=== PATIENT | male | born 1940 | race Caucasian/White ===

== ENCOUNTER 2022-06-07 12:30 | Outpatient (RCR) | payer MEDICARE, SELFPAY ==
--- NOTE | 2022-05-11 10:06 | PTOPEVAL1 ---
Assessment and note entered by Brianna Parker, PT Evaluation Information Assessment Status Evaluation Diagnosis Parkinson Disease Onset October 2021 Subjective Information gradually harder to walk and move around, taking smaller steps at times; have not had any falls; tries to walk 2-3 x/wk, 30-60 minutes; assist a few times a week with caring for 3 yr old grand daughter; want to get stronger and talk louder; reports sometimes at home, walking is more shuffled than what he did here today; Reported Pain Level Pain Score 0: Self Report Pain Score 0: Self Report Additional Pain Score Comments have muscle cramps at night, use heated mattress pad cover; has some R shoulder pain with trying to lift; Assessment PT Clinical Summary Murali has the diagnosis of Parkinson's Disease. His was present during the eval and very supportive to pt. He tries to stay active at home walks outside 2-3 x/wk, but does not do any fitness exercises. He has not had any falls. Also have Speech Therapy. With the evaluation, he has good/normal scores for TUG, 5 reps sit/stand test and 2 minute walking test. Youngblood balance score is 51/56. Skilled PT services are indicated for the [facility], to increase mobility and education to pt and his for home exercise program and management of his chronic disease. Plan of Care Interventions Neuro Re-education,Therapeutic Activities, Therapeutic Exercise, pt education PT Services Indicated Yes Treatment Frequency and 2x/wk for 3 weeks Duration These treatments will address the objective and functional deficits as defined above. The patient will be advanced safely and appropriately in order for the patient to progress towards his/her prior level of function. Additional exercises will be introduced and as well as a comprehensive home exercise program upon discharge, if needed, ?to ensure carryover of functional gains achieved in the clinic. This treatment plan has been reviewed and agreement upon by the patient.
--- NOTE | 2022-05-11 11:11 | STOPEVAL1 ---
Assessment and note entered by Scarlett Rojas BANANA HANDLER Evaluation Information Assessment Status Evaluation Assessment Status Evaluation Subjective Information The patient reports that his physician wanted patient to come for therapy; I don't have any trouble with speaking or talking but I do with memory. Stated he just obtained hearing aids and did not know if his speech had improved. He does admit tospeaking softly, that sometimes he is speaking and people don't know it. Reported Pain Level Pain Score 0: Self Report Pain Score 0: Self Report Additional Pain Score Comments have muscle cramps at night, use heated mattress pad cover; has some R shoulder pain with trying to lift; Assessment ST Clinical Summary VOICE EVALUATION Patient was seen for a Voice Evaluation to assess for use of LSVT-LOUD program for vocal loudness in patients with Parkinson's disease. See above notes for patient's and 's concerns with vocal loudness. Additionally, patient admits to forgetting to speak more loudly until his lets him know she cannot hear and understand him. 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 Results today indicate that patient's vocal loudness is adequate for speech in a quiet, enclosed room when face to face with therapist however due to 's report of examples where patient is not able to or does not speak loudly at home when they are communicating, he will be seen for direct Speech Therapy twice weekly for three weeks for instruction of exercises to improve vocal loudness along with verbal, visual and environmental cues that can be used to remind patient to speak more loudly. Additionally, and patient will be presented with examples of common memory failures and strategies that can be used to facilitate recall. Patient and were in agreement with plan to address both vocal loudness and memory strategies. Thank you for this
--- NOTE | 2022-05-29 15:17 | PCSTNOTE ---
Cancelled Thursday 05/25 due to physician appointment.
--- NOTE | 2022-06-01 12:57 | PCPTNOTE ---
Patient called & cancelled scheduled appointment this date due to not feeling well.
--- NOTE | 2022-06-04 14:09 | PCSTNOTE ---
Therapy 06/01 cancelled due to patient/therapist illness.
--- NOTE | 2022-06-04 14:39 | PTOPDC ---
Assessment and note entered by Brianna Parker, PT Evaluation Information Assessment Status Evaluation Diagnosis Parkinson Disease Onset October 2021 Subjective Information Murali reports: has been walking about 1 mile for fitness, has not had any falls; doing the exercises at home without any problems; sometimes has some dizziness, stands there a minute and it is gone; agree to discharge from PT; is to keep up with his walking and exercises at home; was present and agreed to d/c PT; Reported Pain Level Pain Score 5: Self Report back pain Pain Score Self Report Assessment PT Clinical Summary Murali has received 4 PT sessions. He has improved with his balance to Youngblood balance score of 56/56; increase strength and mobility skills; education completed for HEP. The goals were achieved. Discharge PT services, and is to continue with the balance and leg strengthening exercises. Plan of Care PT Services Indicated No
--- NOTE | 2022-06-07 13:30 | STOPDC ---
Assessment and note entered by SERVANDO Nguyen Evaluation Information Assessment Status Progress Reported Pain Level Pain Score 0: Self Report Assessment ST Clinical Summary TREATMENT NOTE AND PROGRESS SUMMARY The patient has been seen for an initial evaluation for Voice Evaluation and 7 direct sesssions to address vocal loudness. Patient reports that his biggest problem is I need to remember to talk louder. Patient reports that he feels that Speech Therapy has been helpful. He stated, It kind of gets you used to what you have to do. As a result patient feels he is better able to initially be louder when speaking with other people but eventually allows himself to drop his loudness into a mumble kind of speech. Patient reports less occasions when his has had to ask him to speak more loudly. When asked if he thought his would also report he has improved in his vocal loudness, he stated that he feels she would also report improvement although he states, she still has to remind him from time to time. Patient achieved both goals for increased loudness and increased awareness of how it feels to be loud and to project the voice so that others can hear and understand him adequately. He increased the average decibel level for sustaining the ah sound by 14.5 decibels, and averaged 77 decibels during task to imitate words and phrases with the expectation ranging from 68-74 decibels. Conversationally, he averaged 77 decibels today when average decibel level range for this speech therapy environment is 68-74 decibels. Patient is discharged with goals acheived. Plan of Care ST Services Indicated No
== END 2022-06-08 15:51 | disposition home or self-care (01) ==
LOC: ANHST 12:30
PROVIDERS: PCP Family Medicine
DX: G20 Parkinson's disease (principal); G31.83 Neurocognitive disorder with Lewy bodies; R47.89 Other speech disturbances
CPT/HCPCS: 92507; 92524; 97110; 97112; 97116; 97161; 97530

== ENCOUNTER 2022-08-28 09:50 | Outpatient (CLI) | payer MEDICARE, SELFPAY ==
--- NOTE | ~2022-08-28 | XR_ITS ---
Clinical Indication: Abnormal EKG PA and lateral views of the chest: Comparison: None Findings: The lungs are clear, without evidence of focal consolidation or pleural effusion. Cardiome diastinal silhouette is within normal limits. Bones and soft tissues are unremarkable. Impression: Normal chest. Reviewed, dictated and finalized at location . Impression: Normal chest.
[2022-08-28 10:16] LABS: Basophils Absolute Auto 0.1 K/mm3 (0.0-0.1); Basophils Percent Auto 0.9 % (0.2-1.2); Eosinophils Percent Auto 0.6 % (0-4.4); Hematocrit 41.2 % (42.0-52.0); Hemoglobin 13.9 g/dL (14.0-18.0); Immature Granulocyte Absolute 0.04 K/mm3 (0.00-0.031); Immature Granulocyte Percent A 0.6 % (0-0.5); Lymphocytes Absolute Auto 1.35 K/mm3 (0.9-3.2); Lymphocytes Percent Auto 21.3 % (18.3-44.2); Mean Corpuscular HGB Conc 33.7 g/dl (32-36); Mean Corpuscular Hemoglobin 31.1 pg (26-34); Mean Corpuscular Volume 92.2 fl (80-100); Mean Platelet Volume 9.7 fl (7.4-10.4); Monocytes Absolute Auto 0.8 K/mm3 (0.1-0.6); Monocytes Percent Auto 12.5 % (2.6-8.5); Neutrophils Absolute Auto 4.1 K/mm3 (1.3-6.7); Neutrophils Percent Auto 64.1 % (45.5-73.1); Platelet Count Result 281 k/mm3 (150-375); Red Blood Count 4.47 M/mm3 (4.6-6.20); Red Cell Distribution Width 12.8 % (11.5-14.5); White Blood Count 6.3 K/mm3 (4.5-10.0)
[2022-08-28 10:26] LABS: Alanine Aminotransferase 20 U/L (6-50); Albumin Level 4.5 g/dL (3.5-5.1); Alkaline Phosphatase 69 U/L (38-126); Anion Gap 9 mmol/L (8-16); Aspartate Amino Transferase 23 U/L (17-59); Bilirubin,Total 0.6 mg/dL (0.2-1.3); Blood Urea Nitrogen 27 mg/dL (9-20); Calcium 8.7 mg/dL (8.4-10.2); Carbon Dioxide 30 mmol/L (22-30); Chloride 93 mmol/L (98-107); Cholesterol 174 mg/dL (0-200); Estimated Glomerular Filt Rate > 60; Glucose 88 mg/dL (65-110); HDL Direct 59 mg/dL; Potassium 4.1 mmol/L (3.4-5.0); Sodium 132 mmol/L (137-145); Triglycerides 87 mg/dL (<150)
[2022-08-28 10:38] LABS: LDL Cholesterol Direct 84 mg/dL
== END 2022-08-28 09:51 | disposition home or self-care (01) ==
LOC: ANHLAB 09:56
PROVIDERS: PCP Family Medicine; Visit Provider Nurse Practitioner Gerontology
DX: R94.31 Abnormal electrocardiogram [ECG] [EKG] (principal); I10 Essential (primary) hypertension; R01.1 Cardiac murmur, unspecified; F03.90 Unspecified dementia, unspecified severity, without behavioral disturbance, psychotic disturbance, mood disturbance, and anxiety; N40.0 Benign prostatic hyperplasia without lower urinary tract symptoms; Z12.5 Encounter for screening for malignant neoplasm of prostate
CPT/HCPCS: 36415; 71046; 80053; 80061; 84153; 84443; 85025; G0103

== ENCOUNTER 2022-12-04 15:56 | Outpatient (CLI) | payer MEDICARE, SELFPAY ==
[2022-12-04 16:28] LABS: Basophils Absolute Auto 0.1 K/mm3 (0.0-0.1); Basophils Percent Auto 0.9 % (0.2-1.2); Eosinophils Absolute Auto 0.1 K/mm3 (0-0.3); Eosinophils Percent Auto 1.2 % (0-4.4); Hemoglobin 13.4 g/dL (14.0-18.0); Immature Granulocyte Absolute 0.04 K/mm3 (0.00-0.031); Immature Granulocyte Percent A 0.5 % (0-0.5); Lymphocytes Absolute Auto 2.38 K/mm3 (0.9-3.2); Mean Corpuscular HGB Conc 34.4 g/dl (32-36); Mean Corpuscular Hemoglobin 30.6 pg (26-34); Mean Platelet Volume 9.7 fl (7.4-10.4); Monocytes Absolute Auto 0.8 K/mm3 (0.1-0.6); Monocytes Percent Auto 10.1 % (2.6-8.5); Neutrophils Absolute Auto 4.1 K/mm3 (1.3-6.7); Neutrophils Percent Auto 55.3 % (45.5-73.1); Platelet Count Result 245 k/mm3 (150-375); Red Blood Count 4.38 M/mm3 (4.6-6.20); Red Cell Distribution Width 12.5 % (11.5-14.5); White Blood Count 7.4 K/mm3 (4.5-10.0)
[2022-12-04 16:41] LABS: Alanine Aminotransferase 9 U/L (6-50); Albumin Level 4.1 g/dL (3.5-5.1); Alkaline Phosphatase 49 U/L (38-126); Anion Gap 6 mmol/L (8-16); Aspartate Amino Transferase 24 U/L (17-59); Bilirubin,Total 0.5 mg/dL (0.2-1.3); Blood Urea Nitrogen 31 mg/dL (9-20); Calcium 8.5 mg/dL (8.4-10.2); Carbon Dioxide 27 mmol/L (22-30); Chloride 92 mmol/L (98-107); Estimated Glomerular Filt Rate 58; Glucose 90 mg/dL (65-110); Sodium 125 mmol/L (137-145)
== END 2022-12-04 15:57 | disposition home or self-care (01) ==
PROVIDERS: PCP Family Medicine; Visit Provider Physician Assistant
DX: R94.31 Abnormal electrocardiogram [ECG] [EKG] (principal); R53.83 Other fatigue; I10 Essential (primary) hypertension; I48.91 Unspecified atrial fibrillation
CPT/HCPCS: 36415; 80053; 84443; 85025

== ENCOUNTER 2022-12-04 17:44 | Observation (INO) | payer MEDICARE, SELFPAY ==
[2022-12-04] VITALS (7 sets, daily range): BP systolic 136–180; BP diastolic 72–104; PULSE 71–81; RESP 12–20; TEMP 36.1–36.2; O2SAT 98–100; BMI 22.6
--- NOTE | 2022-12-04 17:50 | ECG_ITS ---
Measurements Intervals [place] Rate: 83 P: 112 SC: 247 QRS: -28 QRSD: 104 T: 59 QT: 373 QTc: 440 Interpretive Statements ELECTRONIC ATRIAL PACEMAKER WITH INTERMITTENT VENTRICULAR PACING BORDERLINE LEFT AXIS DEVIATION [QRS AXIS < -20] ABNORMAL ECG NO PREVIOUS ECG AVAILABLE FOR COMPARISON Electronically Signed On 12-05-2022 9:18:13 CDT by Vamsi Lennon M.D.
[2022-12-04 18:05] LABS: Basophils Absolute Auto 0.1 K/mm3 (0.0-0.1); Eosinophils Absolute Auto 0.1 K/mm3 (0-0.3); Eosinophils Percent Auto 1.5 % (0-4.4); Hematocrit 38.1 % (42.0-52.0); Hemoglobin 13.1 g/dL (14.0-18.0); Immature Granulocyte Absolute 0.04 K/mm3 (0.00-0.031); Immature Granulocyte Percent A 0.5 % (0-0.5); Lymphocytes Absolute Auto 2.49 K/mm3 (0.9-3.2); Lymphocytes Percent Auto 33.8 % (18.3-44.2); Mean Corpuscular HGB Conc 34.4 g/dl (32-36); Mean Corpuscular Hemoglobin 31.2 pg (26-34); Mean Corpuscular Volume 90.7 fl (80-100); Mean Platelet Volume 9.7 fl (7.4-10.4); Monocytes Absolute Auto 0.8 K/mm3 (0.1-0.6); Monocytes Percent Auto 10.2 % (2.6-8.5); Neutrophils Absolute Auto 3.9 K/mm3 (1.3-6.7); Platelet Count Result 225 k/mm3 (150-375); Red Cell Distribution Width 12.7 % (11.5-14.5); White Blood Count 7.4 K/mm3 (4.5-10.0)
[2022-12-04 18:14] LABS: Alanine Aminotransferase 13 U/L (6-50); Alkaline Phosphatase 48 U/L (38-126); Anion Gap 6 mmol/L (8-16); Aspartate Amino Transferase 23 U/L (17-59); Bilirubin,Total 0.4 mg/dL (0.2-1.3); Blood Urea Nitrogen 30 mg/dL (9-20); Calcium 8.2 mg/dL (8.4-10.2); Carbon Dioxide 25 mmol/L (22-30); Chloride 93 mmol/L (98-107); Estimated CRCL calculation 47 ml/min; Estimated Glomerular Filt Rate > 60; Glucose 165 mg/dL (65-110); Potassium 3.9 mmol/L (3.4-5.0); Sodium 124 mmol/L (137-145)
[2022-12-04 18:19] LABS: Appearance Urine Clear (Clear); Bilirubin Urine Negative (Negative); Blood Urine Negative (Negative); Color Urine Yellow (Yellow); Glucose Urine UA Negative (Negative); Ketones Urine Negative (Negative); Leukocyte Esterase Ur Negative LEU/UL (Negative); Nitrate Urine Negative (Negative); Protein Urine Negative (Negative); Specific Grav Ur 1.013 (1.001-1.035); Urobilinogen Urine 0.2 mg/dL (<2.0)
[2022-12-04 18:21] LABS: Add Urine Microscopic? NO
[2022-12-04 19:30] LABS: Creatinine Urine 57.2 mg/dL
[2022-12-04 19:31] LABS: Sodium Urine Random 47 meq/L
--- NOTE | 2022-12-04 19:45 | ED.RECABL ---
HPI - Recheck/Abnormal Lab/Rx General Chief Complaint: Recheck/Abnormal Lab/Rx Stated Complaint: low NA Time Seen by Provider: 12/04/22 19:01 History of Present Illness HPI narrative: Patient sent by PCP for low sodium. he has been feeling a little bit weaker than usual but otherwise no chest pain, headache, no new altered mental status or confusion other than baseline dementia/Parkinson's, he has been drinking normal amounts of water and protein water. MD complaint: abnormal lab Related Data Home Medications Medication Instructions Recorded Confirmed amlodipine 10 mg tablet 10 mg PO DAILY 03/13/22 12/04/22 citalopram 20 mg tablet 20 mg PO DAILY 03/13/22 12/04/22 clonazepam 0.5 mg tablet 0.25 mg PO QHS 03/13/22 12/04/22 donepezil 10 mg tablet 10 mg PO QHS 03/13/22 12/04/22 apixaban 5 mg tablet (Eliquis) 5 mg PO BID 12/04/22 12/04/22 carbidopa 25 mg-levodopa 100 mg 1 tablet PO TID 12/04/22 12/04/22 tablet Allergies Allergy/AdvReac Type Severity Reaction Status Date / Time No Known Allergies Allergy Unverified 12/04/22 14:51 Review of Systems Review of Systems: CONST: More weakness HEENT: No sore throat C/V: No chest pain RESP: No cough GI: No abdominal pain : No dysuria. M/S: No joint pain. SKIN: No rash. NEURO: [No headache or focal numbness or weakness] PSYCH: [No depression] [facility] Past Medical History Medical History Fracture, sternum closed Shingles Surgical History Surgical History H/O partial thyroidectomy Family History Family History Other Heart disease Hypertension Social History Social History Social History: Smoking status: Never smoker Second hand tobacco smoke exposure: No Alcohol intake: never Substance use: never Substance use type: does not use Living arrangements: with family Occupation/Education: retired Gender identity (if verbalized by the patient): Male Sexual Orientation (if Verbalized by the Patient): Straight or Heterosexual Exam Narrative: EXAMINATION OF ORGAN SYSTEMS/BODY AREAS: Constitutional: Vital signs per nursing GENERAL:[No acute distress, non-toxic appearing.] HEAD: Normal with no signs of head trauma. EYES: EOMI, conjunctiva normal, PERRL ENT: Hearing grossly intact LUNGS: Nonlabored breathing. HEART: [Regular rate and rhythm] ABD: [Soft], [nontender to palpation] EXT: Normal range of motion SKIN: [No rashes or lesions.] NEURO: [Alert. No gross focal sensory or strength deficits. Slightly shuffling gait. No facial droop.] PSYCH: Normal affect, very pleasant and answering questions appropriately Course Vital Signs Vital signs: Vital Signs Temperature 97.1 F L 12/04/22 17:48 Pulse Rate 81 12/04/22 17:48 Respiratory Rate 16 12/04/22 17:48 Blood Pressure 163/80 H 12/04/22 17:48 Pulse Oximetry 100 12/04/22 17:48 Oxygen Delivery Room Air 12/04/22 17:48 Temperature 97.1 F L 12/04/22 17:48 Pulse Rate 76 12/04/22 19:01 Respiratory Rate 15 12/04/22 19:01 Blood Pressure 136/72 12/04/22 19:01 Pulse Oximetry 99 12/04/22 19:01 Oxygen Delivery Room Air 12/04/22 17:48 MDM - Recheck/Abnormal Lab/Rx MDM Narrative Medical decision making narrative: 1) Differential diagnosis: Electrolyte abnormality, dehydration, endocrine abnormality, diuretic use 2) Comorbidities: Hypertension, Parkinson's, dementia 3) External notes reviewed: Office visit 4) History sources independently obtained from: at bedside 5) Discussion of management with: Hospitalist 6) Independent interpretation of: lab work including low sodium and chloride 7) Diagnostic tests or therapies considered but not ordered: Thyroid and cortisol since pt has normal VS 8) Social de
--- NOTE | 2022-12-04 19:57 | PM.IMHP ---
H&P: HPI History of Present Illness Date/Time: 12/04/22 19:57 Chief Complaint: generalized weakness Narrative: This is an 82-year-old male with past medical history significant for Parkinson's disease, hypertension, osteoarthritis. patient presents to the emergency room due to generalized weakness has been evaluated in the outpatient setting with no improvement chronic fatigue for over a year now decreased appetite weight loss status post pacemaker insertion with no improvement. no fevers no rigors no chills, no nausea, no vomiting, no diarrhea, no abdominal pain. Here preliminary workup has been significant for a sodium of 124 on chemistry panel chloride of 93 a urinalysis was clean, chest x-ray was clear Clinical Indication: Abnormal EKG ?PA and lateral views of the chest: Comparison: None Findings: The lungs are clear, without evidence of focal consolidation or pleural effusion.? Cardiomediastinal silhouette is within normal limits. Bones and soft tissues are unremarkable. ? Impression: ? Normal chest. Review of Systems Review of Systems: generalized weakness, poor appetite, weight loss. Constitutional: Constitutional: Denies chills, Denies fatigue, Denies fever(s), Denies malaise, Reports poor appetite, Reports weakness and Reports weight loss Eyes: Eyes: Denies change in vision ENT: Denies dysphagia, Denies vertigo, Denies dizziness and Denies odynophagia Cardiovascular: Cardiovascular: Denies chest pain, Denies radiating jaw, neck or arm pain and Denies palpitations Respiratory: Respiratory: Denies chest congestion, Denies cough, Denies excessive phlegm production and Denies dyspnea Gastrointestinal: Gastrointestinal: Denies abdominal pain, Denies dyspepsia, Denies heartburn, Denies diarrhea, Denies loose stools, Denies nausea and Denies vomiting Genitourinary: Genitourinary: Denies dysuria Musculoskeletal: Musculoskeletal: Denies abnormal gait, Reports back pain, Denies muscle cramps and Reports muscle weakness Integumentary/Breasts: Skin/Breast: Denies rash Neurologic: Denies focal weakness and Denies Sensory deficit (Neuro) Psychiatric: Psychiatric: Reports no additional psychiatric complaints and Reports as per HPI Endocrine: Endocrine: Denies cold intolerance, Denies fatigue, Denies flushing, Denies heat intolerance, Denies polyphagia, Denies polydipsia and Denies palpitations Hematologic/Lymphatic: Hematologic/Lymphatic: Reports no additional hematologic/lymphatic complaints and Reports as per HPI Allergic/Immunologic: Allergic/Immunologic: Reports no additional allergic/immunologic complaints and Reports as per HPI [facility] Past Medical History Medical History Fracture, sternum closed Shingles Surgical History Surgical History H/O partial thyroidectomy Family History Family History (Updated 12/04/22 @ 21:45 by SAMEER Alvarez) Mother Heart disease Hypertension Social History Social History Social History: Smoking status: Former smoker Second hand tobacco smoke exposure: No Alcohol intake: former Substance use: never Substance use type: does not use Lack of Transportation: No Lack of Food: Never True Current Housing: I Have Housing Concerned About Future Housing: No Difficulty Paying Gas/Electric Bills: No Difficulty Paying for Meds: No Currently Unemployed: No Education: High School Diploma/GED Difficulty w/ Childcare or Family Care: No Living arrangements: with family Occupation/Education: retired Gender identity (if verbalized by the patient): Male Sexual Orientation (if Verbalized by the Patient): Straight or Heterosexual Spiritual care concerns: No Meds Home Medications and Allergies Home Medications Medication Instructions Recorded Confda
[2022-12-04] MEDS: SODIUM CHLORIDE 0.9% IV 1,000 ML 999 ML IV CONT (20:06)
--- NOTE | 2022-12-04 21:33 | ADMGEN ---
This patient, Wes Parker, was admitted to Medical Room 243-01. Patient/family oriented to hospital policies and general routines including ID bracelet, bed and alarms, visiting hours, pain management, procedures, bathroom and other care routines, personal items, smoking policy, room service/diet, and visiting hours. Information on how to activate the Rapid Response Team has been discussed. Patient/Family are encouraged to report perceived risks to care and to ask questions if they do not understand what they are told or what they should do.
[2022-12-04 23:44] LABS: Anion Gap 8 mmol/L (8-16); Blood Urea Nitrogen 28 mg/dL (9-20); Calcium 8.2 mg/dL (8.4-10.2); Carbon Dioxide 27 mmol/L (22-30); Chloride 98 mmol/L (98-107); Estimated CRCL calculation 51 ml/min; Estimated Glomerular Filt Rate > 60; Glucose 84 mg/dL (65-110); Potassium 3.9 mmol/L (3.4-5.0); Sodium 133 mmol/L (137-145)
[2022-12-05 00:16] VITALS: BP 142/74
[2022-12-05 03:42] VITALS: BP 151/98; PULSE 71; RESP 20; TEMP 36.2; O2SAT 100
[2022-12-05 03:43] VITALS: BP 151/98; PULSE 71; RESP 20; TEMP 36.2; O2SAT 100
[2022-12-05 05:41] LABS: Anion Gap 5 mmol/L (8-16); Blood Urea Nitrogen 23 mg/dL (9-20); Calcium 8.2 mg/dL (8.4-10.2); Carbon Dioxide 30 mmol/L (22-30); Chloride 97 mmol/L (98-107); Estimated CRCL calculation 56 ml/min; Estimated Glomerular Filt Rate > 60; Glucose 90 mg/dL (65-110); Sodium 132 mmol/L (137-145)
[2022-12-05 08:00] VITALS: PULSE 71; RESP 20; O2SAT 100
[2022-12-05 08:30] VITALS: BP 128/60
[2022-12-05] MEDS: CITALOPRAM HYDROBROMIDE 20 MG TABLET PO (08:40)
[2022-12-05] MEDS: APIXABAN 5 MG TABLET PO (08:40)
[2022-12-05] MEDS: lisinopriL 20 MG TABLET PO (08:41)
[2022-12-05] MEDS: CARBIDOPA/LEVODOPA 25/100 MG TABLET 1 TABLET PO (08:41)
[2022-12-05] MEDS: DUTASTERIDE 0.5 MG CAPSULE BY MOUTH (08:41)
--- NOTE | 2022-12-05 11:14 | PCPTNOTE ---
Pt independent with functional mobility in the room. Spoke with current hospitalist Dr. Das who is OK with DC therapy orders without seeing pt.
--- NOTE | 2022-12-05 12:13 | PM.DS ---
DS: Admitting Diagnosis Discharge Date 12/05/2022 Admitting Diagnosis Generalized weakness DS: Discharge Diagnosis Discharge Diagnosis (1) Hyponatremia: Code(s): E87.1 - Hypo-osmolality and hyponatremia Status: Acute Assessment and Plan: Pt sodium is better today after fluids I have stopped his HCTZ on DC (2) Unintentional weight loss: Code(s): R63.4 - Abnormal weight loss Status: Acute Assessment and Plan: Patient has been worked up in the outpatient setting (3) Parkinson disease: Code(s): G20 - Parkinson's disease Status: Acute Assessment and Plan: Continue carbidopa levodopa (4) Benign essential HTN: Code(s): I10 - Essential (primary) hypertension Status: Acute Assessment and Plan: Continue amlodipine Continue lisinopril Stop HCTZ (5) Dementia: Code(s): F03.90 - Unspecified dementia, unspecified severity, without behavioral disturbance, psychotic disturbance, mood disturbance, and anxiety Status: Acute Assessment and Plan: continue donepezil continue citalopram (6) Chronic pain: Code(s): G89.29 - Other chronic pain Status: Acute Assessment and Plan: on tramadol and naproxen (7) New onset a-fib: Code(s): I48.91 - Unspecified atrial fibrillation Status: Acute Assessment and Plan: rate controlled anticoagulated DS: Summary Hospital Course Hospital Course: 82-year-old male with past medical history significant for Parkinson's disease, hypertension,? osteoarthritis. patient presents to the emergency room due to generalized weakness has been evaluated in the outpatient setting with no improvement chronic fatigue for over a year now decreased appetite weight loss status post pacemaker insertion with no improvement.? no fevers no rigors no chills, no nausea, no vomiting, no diarrhea, no abdominal pain. Here preliminary workup has been significant for a sodium of 124 on chemistry panel chloride of 93 a urinalysis was clean, chest x-ray was clear. PT has improved after fluids sodium back to 132 today htcz stopped at dc. Time Spent with Patient Time attestation: Total time spent providing and/or coordinating discharge services:40 minutes on day o f DC Exam Const: General: cooperative, comfortable, no acute distress, well developed, alert, awake, Physically active, average body habitus, thin and other ( well-appearing) Nutritional Appearance: average body habitus and thin Orientation/consciousness: patient oriented x3 Resp: Effort & Inspection: normal respiratory effort and able to speak in complete sentences Auscultation: clear to auscultation bilaterally Cardio: Jugular venous distension: no JVD Rate: regular rate Rhythm: regular rhythm Heart sounds: S1 normal heart sound present and S2 normal heart sound present Skin: Rashes: no rashes Wounds: no wounds Neuro: General: patient oriented x3 and CN's II-XI intact bilaterally Cranial nerves: Yes CN's II-XII intact bilaterally and Yes Equal, round and reactive pupils present Cognition (Neuro): normal cognition Speech: normal speech Gait exam (Neuro): Normal gait present Motor exam (neuro): 5/5 motor strength present throughout Sensory Exam: No Sensory deficit (Neuro) Extrem: General: normal to inspection, full ROM, no joint enlargement and no pedal edema DS: Data Data Completed and Pending Labs on day of discharge: Labs from last 24 hours 12/05/22 12/04/22 12/04/22 05:06 22:59 18:07 WBC RBC Hgb Hct MCV MCH MCHC RDW Plt Count MPV Immature Gran % (Auto) Neut % (Auto) Lymph % (Auto) [place] % (Auto) Eos % (Auto) Baso % (Auto) Lymph # (Auto) [place] # (Auto) Eos # (Auto) Baso # (Auto) Abs Immat Gran (auto) Absolute Neuts (auto) Absolute Nucleated RBC Nucleated RBC % Sodium 132 L 133 L Potassium 4.0 3.9 Chloride 97 L 98
[2022-12-06 18:57] LABS: Osmolality, Urine 410 mOsm/kg (50-1200)
== END 2022-12-05 13:07 | disposition home or self-care (01) ==
LOC: ANHED 20:05 → ANH2MED 21:17
PROVIDERS: Emergency Medicine; Admitting Provider Internal Medicine; Emergency Provider Emergency Medicine; PCP Family Medicine; Visit Provider Family Medicine
DX: E87.1 Hypo-osmolality and hyponatremia (principal); R63.4 Abnormal weight loss; G89.29 Other chronic pain; I48.91 Unspecified atrial fibrillation; G20 Parkinson's disease; F02.80 Dementia in other diseases classified elsewhere, unspecified severity, without behavioral disturbance, psychotic disturbance, mood disturbance, and anxiety; I10 Essential (primary) hypertension; M19.90 Unspecified osteoarthritis, unspecified site; Z79.01 Long term (current) use of anticoagulants; Z95.0 Presence of cardiac pacemaker; Z68.22 Body mass index [BMI] 22.0-22.9, adult
CPT/HCPCS: 36415; 80048; 80053; 81003; 82570; 83735; 83935; 84300; 84443; 85025; 93005; 96360; 97165; 99285; A9270; G0378; J7030

== ENCOUNTER 2022-12-14 14:26 | Outpatient (CLI) | payer MEDICARE, SELFPAY ==
[2022-12-14 15:06] LABS: Anion Gap 5 mmol/L (8-16); Blood Urea Nitrogen 30 mg/dL (9-20); Calcium 7.9 mg/dL (8.4-10.2); Carbon Dioxide 27 mmol/L (22-30); Chloride 95 mmol/L (98-107); Estimated Glomerular Filt Rate > 60; Glucose 87 mg/dL (65-110); Potassium 4.4 mmol/L (3.4-5.0); Sodium 127 mmol/L (137-145)
== END 2022-12-14 14:27 | disposition home or self-care (01) ==
LOC: ANHLAB 14:27
PROVIDERS: PCP Family Medicine; Visit Provider Physician Assistant
DX: E87.1 Hypo-osmolality and hyponatremia (principal)
CPT/HCPCS: 36415; 80048

== ENCOUNTER 2022-12-15 09:31 | Outpatient (CLI) | payer MEDICARE, SELFPAY ==
[2022-12-15 09:56] LABS: Sodium Urine Random 68 meq/L
== END 2022-12-15 09:32 | disposition home or self-care (01) ==
LOC: ANHLAB 09:34
PROVIDERS: PCP Family Medicine; Visit Provider Physician Assistant
DX: E87.1 Hypo-osmolality and hyponatremia (principal)
CPT/HCPCS: 84300

== ENCOUNTER 2022-12-25 09:37 | Outpatient (CLI) | payer MEDICARE, SELFPAY ==
[2022-12-25 10:39] LABS: Anion Gap 7 mmol/L (8-16); Blood Urea Nitrogen 27 mg/dL (9-20); Calcium 8.4 mg/dL (8.4-10.2); Carbon Dioxide 30 mmol/L (22-30); Chloride 98 mmol/L (98-107); Estimated Glomerular Filt Rate > 60; Glucose 88 mg/dL (65-110); Potassium 4.3 mmol/L (3.4-5.0); Sodium 135 mmol/L (137-145)
== END 2022-12-25 09:38 | disposition home or self-care (01) ==
LOC: ANHLAB 09:38
PROVIDERS: PCP Family Medicine; Visit Provider Physician Assistant
DX: E87.1 Hypo-osmolality and hyponatremia (principal)
CPT/HCPCS: 36415; 80048

== ENCOUNTER 2023-01-29 14:12 | Outpatient (CLI) | payer MEDICARE, SELFPAY ==
[2023-01-29 14:59] LABS: Anion Gap 7 mmol/L (8-16); Blood Urea Nitrogen 35 mg/dL (9-20); Calcium 8.3 mg/dL (8.4-10.2); Carbon Dioxide 26 mmol/L (22-30); Chloride 98 mmol/L (98-107); Estimated Glomerular Filt Rate > 60; Glucose 108 mg/dL (65-110); Sodium 131 mmol/L (137-145)
== END 2023-01-29 14:13 | disposition home or self-care (01) ==
LOC: ANHLAB 14:14
PROVIDERS: PCP Family Medicine; Visit Provider Physician Assistant
DX: E87.1 Hypo-osmolality and hyponatremia (principal)
CPT/HCPCS: 36415; 80048

== ENCOUNTER 2023-03-19 08:35 | Outpatient (CLI) | payer MEDICARE, SELFPAY ==
--- NOTE | ~2023-03-19 | XR_ITS ---
EXAMINATION: XR chest 2V 03/19/2023 09:23 INDICATION: Hyponatremia PROCEDURE: 2 view chest COMPARISON: 08/28/2022 FINDINGS: The lungs are clear. The cardiomediastinal silhouette is within normal limits. There are no pleural effusions. There is no pneumothorax suspected. Pacemaker leads are in expected position. IMPRESSION: 1: NO ACUTE CARDIOPULMONARY DISEASE. Reviewed, dictated and finalized at location L. MANAGER
[2023-03-19 09:14] LABS: Creatinine Urine 130.1 mg/dL; Total Protein Urine Random 9 mg/dL; Ur Ttl Prot Creatinine Ratio 0.07 mg/mg (0-0.20)
[2023-03-19 09:17] LABS: Sodium Urine Random 61 meq/L
[2023-03-19 09:29] LABS: Albumin Level 4.1 g/dL (3.5-5.1); Anion Gap 7 mmol/L (8-16); Blood Urea Nitrogen 23 mg/dL (9-20); Calcium 8.5 mg/dL (8.4-10.2); Carbon Dioxide 29 mmol/L (22-30); Chloride 100 mmol/L (98-107); Estimated Glomerular Filt Rate > 60; Glucose 85 mg/dL (65-110); Potassium 4.4 mmol/L (3.4-5.0); Sodium 136 mmol/L (137-145)
[2023-03-21 13:00] LABS: Albumin 4.1 g/dL (3.8-4.8); Alpha 1 Globulin 0.3 g/dL (0.2-0.3); Alpha 2 Globulin 0.7 g/dL (0.5-0.9); Beta 1 Globulin 0.4 g/dL (0.4-0.6); Gamma Globulin 0.7 g/dL (0.8-1.7); Protein, Total 6.5 g/dL (6.1-8.1)
[2023-03-23 12:42] LABS: Osmolality, Urine 484 mOsm/kg (50-1200)
[2023-03-25 12:17] LABS: Creatinine, Random Urine 128 mg/dL (20-320); Total Protein/Creatinine Ratio 125 mg/g creat (25-148)
== END 2023-03-19 08:36 | disposition home or self-care (01) ==
LOC: ANHLAB 08:36
PROVIDERS: PCP Family Medicine; Visit Provider Internal Medicine Nephrology
DX: E87.1 Hypo-osmolality and hyponatremia (principal); I48.91 Unspecified atrial fibrillation
CPT/HCPCS: 36415; 71046; 80069; 82533; 82570; 83930; 83935; 84155; 84156; 84165; 84166; 84300; 84443

== ENCOUNTER 2023-05-25 11:42 | Outpatient (CLI) | payer MEDICARE, SELFPAY ==
[2023-05-25 13:12] LABS: Albumin Level 4.3 g/dL (3.5-5.1); Anion Gap 7 mmol/L (8-16); Blood Urea Nitrogen 24 mg/dL (9-20); Calcium 8.7 mg/dL (8.4-10.2); Carbon Dioxide 27 mmol/L (22-30); Chloride 101 mmol/L (98-107); Estimated Glomerular Filt Rate > 60; Glucose 98 mg/dL (65-110); Phosphorus 3.2 mg/dL (2.5-4.5); Potassium 4.2 mmol/L (3.4-5.0); Sodium 135 mmol/L (137-145)
== END 2023-05-25 11:43 | disposition home or self-care (01) ==
LOC: ANHLAB 11:46
PROVIDERS: PCP Family Medicine; Visit Provider Internal Medicine Nephrology
DX: E87.1 Hypo-osmolality and hyponatremia (principal)
CPT/HCPCS: 36415; 80069

== ENCOUNTER 2023-06-11 10:56 | Outpatient (CLI) | payer MEDICARE, SELFPAY ==
--- NOTE | ~2023-06-11 | XR_ITS ---
. XR_CERV2-3V_CR DATE: 06/11/2023 11:20 INDICATION: Intermittent neck pain for months TECHNIQUE: AP, open-mouth, lateral, swimmer views COMPARISON: None FINDINGS: C1 and C2 are normally aligned and the odontoid process is intact. There is approximately 2 mm anterolisthesis at C3-4 and C4-5. Is moderate degenerative disc disease a t each of these levels. Moderately severe degenerative disc disease at C5-6 with minimal retrolisthesis. No fracture or dislocation or locked facet or prevertebral soft tissue swelling is detected. Left dual-lead cardiac pacemaker device. IMPRESSION: Approximately 2 mm anterolisthesis at C3-4 and C4-5 Multilevel degenerative disc disease, most prominent at C5-6 Reviewed, dictated and finalized at Location A. Reviewed, dictated and finalized at location L. CELLAR WORKER
== END 2023-06-11 10:57 | disposition home or self-care (01) ==
LOC: ANHIMG 11:04
PROVIDERS: PCP Family Medicine; Visit Provider Physician Assistant
DX: M43.02 Spondylolysis, cervical region (principal); M50.322 Other cervical disc degeneration at C5-C6 level
CPT/HCPCS: 72040

== ENCOUNTER 2023-06-18 09:50 | Outpatient (CLI) | payer MEDICARE, SELFPAY ==
[2023-06-18 10:50] LABS: Anion Gap 6 mmol/L (8-16); Blood Urea Nitrogen 27 mg/dL (9-20); Calcium 8.8 mg/dL (8.4-10.2); Carbon Dioxide 29 mmol/L (22-30); Chloride 98 mmol/L (98-107); Estimated Glomerular Filt Rate > 60; Glucose 96 mg/dL (65-110); Potassium 4.2 mmol/L (3.4-5.0); Sodium 133 mmol/L (137-145)
== END 2023-06-18 09:51 | disposition home or self-care (01) ==
PROVIDERS: PCP Family Medicine; Visit Provider Physician Assistant
DX: E87.1 Hypo-osmolality and hyponatremia (principal)
CPT/HCPCS: 36415; 80048

== ENCOUNTER 2023-07-12 13:03 | Outpatient (CLI) | payer MEDICARE, SELFPAY ==
[2023-07-12 13:51] LABS: Albumin Level 3.9 g/dL (3.5-5.1); Anion Gap 2 mmol/L (8-16); Blood Urea Nitrogen 29 mg/dL (9-20); Calcium 8.5 mg/dL (8.4-10.2); Carbon Dioxide 31 mmol/L (22-30); Chloride 100 mmol/L (98-107); Estimated Glomerular Filt Rate > 60; Glucose 117 mg/dL (65-110); Phosphorus 3.8 mg/dL (2.5-4.5); Potassium 4.5 mmol/L (3.4-5.0); Sodium 133 mmol/L (137-145)
== END 2023-07-12 13:04 | disposition home or self-care (01) ==
LOC: ANHLAB 13:04
PROVIDERS: PCP Family Medicine; Visit Provider Internal Medicine Nephrology
DX: E87.1 Hypo-osmolality and hyponatremia (principal)
CPT/HCPCS: 36415; 80069

== ENCOUNTER 2023-12-05 09:09 | Outpatient (CLI) | payer MEDICARE, SELFPAY ==
[2023-12-05 09:39] LABS: Albumin Level 3.9 g/dL (3.5-5.1); Anion Gap 8 mmol/L (4-12); Blood Urea Nitrogen 19 mg/dL (9-20); Calcium 8.5 mg/dL (8.4-10.2); Carbon Dioxide 29 mmol/L (22-30); Chloride 98 mmol/L (98-107); Estimated Glomerular Filt Rate 58; Glucose 143 mg/dL (65-110); Phosphorus 3.8 mg/dL (2.5-4.5); Sodium 135 mmol/L (137-145)
== END 2023-12-05 09:10 | disposition home or self-care (01) ==
LOC: ANHLAB 09:10
PROVIDERS: PCP Family Medicine; Visit Provider Internal Medicine Nephrology
DX: E87.1 Hypo-osmolality and hyponatremia (principal)
CPT/HCPCS: 36415; 80069

== ENCOUNTER 2024-06-04 13:51 | Outpatient (CLI) | payer MEDICARE, SELFPAY ==
--- OUTSIDE RECORDS SUMMARY | 2024-06-04 13:56 | XMS_ITS | Encounter Summary ---
Author Organization [facility] Address [address] [place] [address] Phone Care Team Providers Care Model Maker Name Role Phone Duyne Moreland MD Primary Care Provider [phone] Osmin Rosado MD Unavailable [phone] Reason for Visit * Reason Comments Medication Refill Encounter Details Date Type Department Care Team (Late st Contact Info) Description 07/22/2022 Refill [facility] - Neurology [facility] [address] [place] [address] Caprice Sepulveda, AVIATION ELECTRICIAN, NURSE ORTHOPEDIC [address] [place] [address] Medication Refill Social History Tobacco Use Types Packs/Day Years Used Date Smoking Tobacco: Former Smokeless Tobacco: Never Alcohol Use Standard Drinks/Week Comments No 0 (1 standard drink = 0.6 oz pur e alcohol) PHQ-2 Answer Date Recorded Total Score - Questions 1-9 0 11/2021 Sexually Active Control Partners Comments Not Currently Sex and Gender Information Value Date Recorded Sex Assigned at Male 01/07/2024 1:02 PM CDT Legal Sex Male 9:08 PM CDT Gender Identity Not on file Sexual Orientation Not on file documented as of this encounter Plan of Treatment Upcoming Encounters Date Type Department Care Team (Latest Contact Info) Description 06/10/2024 1:45 PM LIQUOR GRINDING MILL OPERATOR [facility]ational [facility] [address], [facility] [address] [place] [id number] Osmin Rosado MD [address] [place] [address] Kathleen Knox, OT [place] Discharge Disposition: Discharged to home or Selfcare 09/11/2024 1:00 PM CDT Office Visit [facility] - Neurology - [place] [address] [place] [address] Osmin Rosado MD [address] [place] [address] documented as of this encounter Visit Diagnoses Not on filedocumented in this encounter Additional Health Concerns Assessment Noted Time PHQ-9 Depression Total Score: 0 10/05/19 22 8:28 AM CDT documented as of this encounter Care Teams Model Maker Relationship Specialty Start Date End Date Duyen Moreland MD [address] [facility] [address] [place] [address] PCP - General Family Medicine 03/29/22 Osmin Rosado MD [address] [place] [id number] Consulting Physician Neurology 03/29/22 documented as of this encounter
--- OUTSIDE RECORDS SUMMARY | 2024-06-04 13:56 | XMS_ITS | Clinical Summary ---
Author Organization [facility] Address [address], [address] [address] Phone Care Team Providers Care Private Detective Name Role Phone Duyen Moreland MD Primary Care Provider [phone] Osmin Rosado MD Unavailable [phone] Allergies No known active allergies Medications naproxen (NAPROSYN) 500 MG Tablet Take 1 Tablet by mouth 2 times daily (with meals). 180 Tablet 3 2 Active Additional Information Patient not taking.Reported on 03/07/2023 amLODIPine (NORVASC) 10 MG Tablet TAKE 1 TABLET BY MOUTH DAILY 90 Tablet 3 2 Active Additional Information Patient taking differently: 5 mgOral DAILY, Reported on 07/11/2023 citalopram (CeleXA) 20 MG Tablet TAKE 1 TABLET BY MOUTH DAILY 90 Tablet 3 2 Active traMADol (ULTRAM) 50 MG TabletIndicatio ns:Primary osteoarthritis, unspecified site TAKE 1 TABLET BY MOUTH TWICE DAILY 60 Tablet 2 Active apixaban (Eliquis) 2.5 MG Tablet Take 2.5 mg by mouth 2 times daily. Active donepezil (ARICEPT) 10 MG Tablet Take 1 Tablet by mouth nightly. 90 Tablet 3 4 Active lisinopril (PRINIVIL, ZESTRIL) 10 MG Tablet Take 10 mg by mouth daily. Active latanoprost (XALATAN) 0.005 % Solution INSTILL 1 DROP IN LEFT EYE AT BEDTIME 4 Active Omeprazole 20 MG Tablet Delayed Response Take by mouth daily. Active SODIUM CHLORIDE PO Take by mouth. Activ e tamsulosin (FLOMAX) 0.4 MG Capsule TAKE 1 CAPSULE BY MOUTH EVERY DAY AT BEDTIME Active dutasteride (AVODART) 0.5 MG Capsule Take 0.5 mg by mouth daily. Active carbidopa-levod opa (SINEMET) 25-100 MG Tablet Take 2 Tablets by mouth 3 times daily. 180 Tablet 5 4 Active clonazePAM (KlonoPIN) 0.5 MG TabletIndicatio ns:REM sleep behavior disorder Take 1 Tablet by mouth nightly. 30 Tablet 3 5 Active clonazePAM (KlonoPIN) 0.5 MG TabletIndicatio ns:REM sleep behavior disorder Take 1 Tablet by mouth nightly. 30 Tablet 3 4 025 Discontin ued(Reord er) Active Problems Problem Noted Date Diagnosed Date Atrial fibrillation, unspecified type 07/11/2023 Parkinsonism, unspecified Parkinsonism type 06/27 Primary insomnia 03/11/2018 History of basal cell carcinoma (BCC) of skin Mass of right hand 09/19/2016 Benign non-nodular prostatic hyperplasia with lower urinary tract symptoms 08/25/2015 RLS (restless legs syndrome) DJD (degenerative joint disease) ÁNGELA (obstructive sleep apnea) Carpal tunnel syndrome Overview (02/16/2015): B/L HTN (hypertension) Encounters Date Type Department Care Team Description 06/04/2024 Telephone [facility] [address], [address] [place] [address] Kathleen Knox, OT Appointment (Patient's spouse called to cancel patient's appointment due to having plumbing work needing done today. PAS took the phone call. ) 06/03/2024 1:45 PM APPLICATION CHEMIST Occupational Therapy [facility] [address], [address] [place] [address] Osmin Rosado, Kathleen Lopez, OT Parkinsonism, unspecified Parkinsonism type (HCC) (Primary Dx); Decreased activities of daily living (ADL) Discharge Disposition: Discharged to home or Selfcare 06/02/2024 1:45 PM APPLICATION CHEMIST Occupational Therapy [facility] Re[facility] at [facility] [address], [address] [place] [address] Osmin Rosado, Kathleen Lopez, OT Parkinsonism, unspecified Parkinsonism type (HCC) (Primary Dx); Decreased activities of daily living (ADL) Discharge Disposition: Discharged to home or Selfcare 06/02/2024 Travel 06/01/2024 Travel 05/31/2024 Travel 05/28/2024 Travel 05/27/2024 1:45 PM APPLICATION CHEMIST Occupational Therapy [facility] Rehab at [facility] [address], [address] [place] [address] Osmin Rosado, Kathleen Lopez, OT Parkinsonism, unspecified Parkinsonism type (HCC) (Primary Dx); Decreased activities of daily living (ADL) Discharge Disposition: Discharged to home or Selfcare 05/26/2024 Travel 05/25/2024 Travel 05/24/2024 Travel 05/21/2024 1:45 PM APPLICATION CHEMIST Occupational Therapy [facility] at [facility] [address] [place] [address] Osmin Rosado, Kathleen Lopez, OT Parkinsonism, unspecified Parkinsonism type (HCC) (Primary Dx); Decreased activities of daily living (ADL) Discharge Disposition: Discharged to home or Selfcare 05/20/2024 1:45 PM APPLICATION CHEMIST Occupational Therapy [facility] at [facility] [address] [place] [address] Osmin Rosado, Kathleen Lopez, OT Parkinsonism, unspecified Parkinsonism type (HCC) (Primary Dx); Decreased activities of daily living (ADL) Discharge Disposition: Discharged to home or Selfcare 05/20/2024 Travel 05/19/2024 Travel 05/19/2024 Telephone [facility] Rehab at [place] [address] [place] [address] Kathleen Knox OT Appointment (Patient's spouse called to cancel due to extreme weather temperatures. PAS took the phone call. ) 05/18/2024 Refill [facility] Neurology [facility] [address] [facility] [place] [address] Osmin Rosado MD 05/15/2024 1:45 PM APPLICATION CHEMIST Occupational Therapy [facility] Rehab at [address], [address] [place] [address] Osmin Rosado MD Kallal, Meagan K, OT Parkinsonism, unspecified Parkinsonism type (HCC) (Primary Dx); Decreased activities of daily living (ADL) Discharge Disposition: Discharged to home or Selfcare 05/15/2024 Refill [facility] [address]2 [facility] [place] [address] Osmin Rosado MD Medication Refill 05/14/2024 11:30 AM APPLICATION CHEMIST Occupational Therapy [facility] at [address], [address] [place] [address] Osmin Rosado MD Kallal, Meagan K, OT Parkinsonism, unspecified Parkinsonism type (HCC) (Primary Dx); Decreased activities of daily living (ADL) Discharge Disposition: Discharged to home or Selfcare 05/13/2024 2:30 PM APPLICATION CHEMIST Occupational Therapy [facility] at [facility] [address] [place] [address] Osmin Rosado, Kathleen Lopez, OT Parkinsonism, unspecified Parkinsonism type (HCC) (Primary Dx); Decreased activities of daily living (ADL) Discharge Disposition: Discharged to home or Selfcare 05/13/2024 Travel 05/12/2024 1:45 PM APPLICATION CHEMIST Occupational Therapy [facility] at [facility] [address] [place] [address] Osmin Rosado, Kathleen Lopez, OT Parkinsonism, unspecified Parkinsonism type (HCC) (Primary Dx); Decreased activities of daily living (ADL) Discharge Disposition: Discharged to home or Selfcare 05/12/2024 Travel 05/11/2024 Travel 05/06/2024 1:45 PM APPLICATION CHEMIST Occupational Therapy [facility] at [facility] [address], [address] [place] [address] Osmin Rosado, Kathleen Lopez, OT Parkinsonism, unspecified Parkinsonism type (HCC) (Primary Dx); Decreased activities of daily living (ADL) Discharge Disposition: Discharged to home or Selfcare 05/05/2024 1:45 PM APPLICATION CHEMIST Occupational Therapy [facility] Rehab at [address], [address] [place] [address] Osmin Rosado, Kathleen Lopez, OT Decreased activities of daily living (ADL) (Primary Dx); Parkinsonism, unspecified Parkinsonism type (HCC) Discharge Disposition: Discharged to home or Selfcare 05/05/2024 Plan of Care Documentation [facility] at [facility] [address], [address] [place] [address] 05/05/2024 Travel 03/09/2024 2:15 PM APPLICATION CHEMIST Office Visit [facility] - Neurology [facility] [address] [place] [address] Osmin Rosado MD Parkinsonism, unspecified Parkinsonism type (HCC) (Primary Dx); Lewy body dementia without behavioral disturbance (HCC); REM sleep behavior disorder Discharge Disposition: Discharged to home or Selfcare 03/07/2024 Travel from Last 3 Months Immunizations Immunization Administration Dates Next Due Influenza Vaccine 03/15/2021,02/20/2019 Influenza Vaccine greater than 3 yrs 02/27/2013 Influenza Vaccine, Quadrivalent, PF 01/08/2018 Influenza, High-dose, Quadrivalent 05/09/2023 Influenza, Quadrivalent, Adjuvanted 03/24/2022,1 ,01/30/2020 Influenza, Seasonal, Injecta ble, Undefined 02/27/2013 Influenza, high-dose, trivalent, PF 01/28,03/05/2017,03/27/2016,2015 PUR FLU HIGH DOSE (FLUZONE) 03/27/2016 Pneumococcal Vaccine - 13 Valent 02/05/2015 Pneumococcal Vaccine Adult - 23 Valent 01/28/2012 TD VACCINE 04/29/2011 Zoster Vaccine, live 04/29/2006 Family History Medical History Relation Name Comments Cancer Father Hypertension Father Diabetes Mother Relation Name Status Comments Father Mother Social History Tobacco Use Types Packs/Day Years Used Date Smoking Tobacco: Former Smokeless Tobacco: Never Tobacco Cessation:Counseling Given: Not Answered Alcohol Use Standard Drinks/Week Comments No 0 [...] on file Sexual Orientation Not on file Last Filed Vital Signs Vital Sign Reading Time Taken Comments Blood Pressure 152/98 03/09/2024 2:33 PM APPLICATION CHEMIST Pulse 86 03/09/2024 2:33 PM APPLICATION CHEMIST Temperature 36.9 C (98.4 F) 03/09/2024 2:33 PM APPLICATION CHEMIST Respiratory Rate 17 03/09/2024 2:33 PM APPLICATION CHEMIST Oxygen Saturation 98% 03/09/2024 2:33 PM APPLICATION CHEMIST Inhaled Oxygen Concentration - - Weight 69.3 kg (152 lb 11.2 oz) 03/09/2024 2:33 PM APPLICATION CHEMIST Height 175.3 cm (5' 9 ) 03/09/2024 2:33 PM APPLICATION CHEMIST Body Mass Index 22.55 03/09/2024 2:33 PM APPLICATION CHEMIST Plan of Treatment Upcoming Encounters Date Type Department Care Team (Latest Contact Info) Description 06/10/2024 1:45 PM APPLICATION CHEMIST Occupational Therapy [facility] [address] [place] [address] Osmin Rosado MD [address] [place] [address] Kathleen Knox, OT [place] Discharge Disposition: Discharged to home or Selfcare 09/11/2024 1:00 PM CDT Office Visit [facility] - Neurology [facility] [address] [place] [address] Osmin Rosado MD [address] [place] [address] Health Maintenance Due Date Last Done Comments Hepatitis C Virus (HCV) Screening 1940 TdaP Immunization 1940 Zoster Immunization (2 of 3) 06/24/2006 04/29/2006 Respiratory Syncytial Virus (RSV) Immunization (Adult) (1 - 1-dose 75+ series) 2017 SARS-COV-2 Immunization (2 - season) 2023 07/02/2020 Pneumococcal Immunization (50+ years) Completed 02/05/2015, 01/28/2012 Pneumococcal Immunization Combined Discontinued 02/05/2015, 01/28/2012 Influenza Immunization Completed , 05/09/2023, 03/24/2022, Additional history exists Hepatitis B Immunization Aged Out No longer eligible based on patient's age to complete this topic Meningococcal Immunization (ACWY) Aged Out No longer eligible based on patient's age to complete this topic Rotavirus Immunization Aged Out No lo nger eligible based on patient's age to complete this topic Insurance MEDICARE [facility] Care Teams Private Detective Relationship Specialty Start Date End Date Duyen Moreland MD [address] [facility] [address] [place] [address] PCP - General Family Medicine 03/29/22 Osmin Rosado MD [address] [place] [address] Consulting Physician Neurology 03/29/22
--- OUTSIDE RECORDS SUMMARY | 2024-06-04 13:56 | XMS_ITS | Encounter Summary ---
Author Organization [facility] Address [address] [facility] [place] [address] Phone Care Team Providers Care Accounting Manager Controller Name Role Phone Jimmie Dunaway MD Primary Care Provider [phone] Duyen Moreland MD Primary Care Provider [phone] Osmin Rosado MD Unavailable [phone] Reason for Visit * Reason Comments Medication Refill Encounter Details Date Type Department Care Team (Late st Contact Info) Description 04/14/2020 Refill [facility] [address] [place] [address] Jimmie Dunaway MD [address] [address] Medication Refill Social History Tobacco Use Types Packs/Day Years Used Date Smoking Tobacco: Former Smokeless Tobacco: Never Alcohol Use Standard Drinks/Week Comments No 0 (1 standard drink = 0.6 oz pur e alcohol) PHQ-2 Answer Date Recorded PHQ-2 Score 0 03/23/2019 Sexually Active Control Partners Comments Not Currently Sex and Gender Information Value Date Recorded Sex Assigned at Male 01/07/2024 1:02 PM CDT Legal Sex Male 9:08 PM CDT Gender Identity Not on file Sexual Orientation Not on file COVID-19 Exposure Response Date Recorded In the last month, have you been in contact with someone who was confirmed or suspected to have Coronavirus / COVID-19? No / Unsure 03/30/2020 7:36 AM LEARN TO SWIM INSTRUCTOR documented as of this encounter Miscellaneous Notes * Telephone Encounter - Jimmie Dunaway MD - 04/14/2020 11:16 AM CST Prescription pending signature N TO SWIM INSTRUCTOR * Telephone Encounter - Luzma Cisneros RN - 04/14/2020 11:14 AM CST Last OV 04/04/20 - follow up 10/04/20 (appt desk) - last Rx 09/22/19 Medication failed the protocol, provider to review and approve the medication order if appropriate. Requested Prescriptions Pending Prescriptions Disp Refills traMADol (ULTRAM) 50 MG Tablet [Pharmacy Med Name: TRAMADOL 50MG TABLETS] 60 Tab 0 Sig: TAKE 1 TABLET BY MOUTH TWICE DAILY Not Delegated - Analgesics: Opioid Agonists Failed - 04/14/2020 8:35 AM Failed - This refill cannot be delegated Passed - Valid encounter within last 6 months Past Office Visits Recent Outpatient Visits 1 week ago Essential hypertension [facility] - Jimmie Wu MD 6 months ago Essential hypertension [facility] Jimmie Wu MD 1 year ago Essential hypertension [facility] Jimmie Wu MD 1 year ago Primary insomnia [facility] Jimmie Wu MD 2 years ago Essential hypertension [facility] Jimmie Wu MD Upcoming Appointments Future Appointments In 2 weeks Osmin Rosado MD [facility] Medical [facility] Neurology - AL[facility] In 5 months Karen, [facility], [facility] In 5 months Jimmie Dunaway MD [facility] ALIZE Chen REINFORCING [employer] AND REBAR WORKERS - Recent and Past Visits Recent Visits Date Type Provider Dept 04/04/20 Telemedicine Jimmie Dunaway MD [facility] 09/22/19 Office Visit Jimmie Dunaway MD [facility] 03/23/19 Office Visit Jimmie Dunaway MD [facility] Showing recent visits within past 460 days with a meds authorizing provider and meeting all other requirements Future Appointments No visits were found meeting these conditions. Showing future appointments within next 90 days with a meds authorizing provider and meeting all other requirements N TO SWIM INSTRUCTOR documented in this encounter Plan of Treatment Upcoming Encounters Date Type Department Care Team (Latest Contact Info) Description 06/10/2024 1:45 PM LEARN TO SWIM INSTRUCTOR Occupational Therapy [facility] Rehab at [address] [address] Osmin Rosado MD [address] [place] [address] Kathleen Knox, OT [place] Discharge Disposition: Discharged to home or Selfcare 09/11/2024 1:00 PM CDT Office Visit [facility] - Neurology [facility] [address] [place] [address] Osmin Rosado MD [address] [place] [address] documented as of this encounter Visit Diagnoses Not on filedocumented in this encounter Additional Health Concerns Infection Onset Date Last Indicated Resolved Time COVID - 19 Confirmed 04/20/2021 04/20/2021 022 12:16 AM LEARN TO SWIM INSTRUCTOR Assessment Noted Time PHQ-9 Depression Total Score: 0 03/23/20 19 8:11 AM LEARN TO SWIM INSTRUCTOR documented as of this encounter Care Teams Accounting Manager Controller Relationship Specialty Start Date End Date Jimmie Dunaway MD [address] [address] PCP - General Family Medicine 01/17/15 03/28/22 Duyen Moreland MD [address] [facility] [address] [place] [address] PCP - General Family Medicine 03/29/22 Osmin Rosado MD [address] [place] [address] Consulting Physician Neurology 03/29/22 documented as of this encounter
--- OUTSIDE RECORDS SUMMARY | 2024-06-04 13:56 | XMS_ITS | Encounter Summary ---
Author Organization [facility] Address [address] [place] [address] Phone Care Team Providers Care Hvac Tech Name Role Phone Jimmie Dunaway MD Primary Care Provider [phone] Duyen Moreland MD Primary Care Provider [phone] Osmin Rosado MD Unavailable [phone] Reason for Visit * Reason Comments Medication Refill Encounter Details Date Type Department Care Team (Late st Contact Info) Description 11/11/2020 Refill [facility] [address] [place], [place] [id number] Jimmie Dunaway MD [address] [address] Medication Refill Social History Tobacco Use Types Packs/Day Years Used Date Smoking Tobacco: Former Smokeless Tobacco: Never Alcohol Use Standard Drinks/Week Comments No 0 (1 standard drink = 0.6 oz pur e alcohol) PHQ-2 Answer Date Recorded Total Score - Questions 1-9 0 11/2020 Sexually Active Control Partners Comments Not Currently [...] have Coronavirus / COVID-19? No / Unsure 11/14/2020 9:58 AM CDT documented as of this encounter Miscellaneous Notes * Telephone Encounter - Jimmie Dunaway MD - 11/11/2020 11:43 AM CDT Prescription approved. Please call in * Telephone Encounter - Luzma Cisneros RN - 11/11/2020 11:41 AM CDT Per nursing clinical judgement, provider to review and approve the medication(s) order(s) if appropriate. Requested Prescriptions Pending Prescriptions Disp Refills naproxen (NAPROSYN) 500 MG Tablet [Pharmacy Med Name: NAPROXEN 500MG TABLETS] 180 Tablet 3 Sig: TAKE 1 TABLET BY MOUTH TWICE DAILY WITH MEALS [facility] Analgesics: NSAIDS - OTC Passed - 11/11/2020 7:19 AM Passed - Valid encounter within last 12 months Past Office Visits Recent Outpatient Visits 1 month ago Benign non-nodular prostatic hyperplasia with lower urinary tract symptoms [facility] - Jimmie Wu MD 7 months ago Essential hypertension [facility] Jimmie Wu MD 1 year ago Essential hypertension [facility] Jimmie Wu MD 1 year ago Essential hypertension [facility] Jimmie Wu MD 2 years ago Primary insomnia [facility] Jimmie Wu MD Upcoming Appointments Future Appointments In 3 days Osmin Rosado MD [facility] Neurology [facility] In 4 months Lab, [facility], [facility] In 4 months Jimmie Dunaway MD [facility] ALIZE Chen BREEDING TECHNICIAN - Recent and Past Visits Recent Visits Date Type Provider Dept 10/04/20 Office Visit Jimmie Dunaway MD [facility] 04/04/20 Telemedicine Jimmie Dunaway MD [facility] 09/22/19 Office Visit Jimmie Dunaway MD [facility] Showing recent visits within past 460 days with a meds authorizing provider and meeting all other requirements Future Appointments No visits were found meeting these conditions. Showing future appointments within next 90 days with a meds authorizing provider and meeting all other requirements documented in this encounter Plan of Treatment Upcoming Encounters Date Type Department Care Team (Latest Contact Info) Description 06/10/2024 1:45 PM SALES AND DISTRIBUTION CLERK Occupational Therapy [facility] [address] [facility] [address] [place] [address] Osmin Rosado MD [address] [place] [address] Kathleen Knox, OT [place] Discharge Disposition: Discharged to home or Selfcare 09/11/2024 1:00 PM CDT Office Visit [facility] - Neurology [facility] [address] [place] [address] Osmin Rosado MD [address] [place] [address] documented as of this encounter Visit Diagnoses Not on filedocumented in this encounter Additional Health Concerns Infection Onset Date Last Indicated Resolved Time COVID - 19 Confirmed 04/20/2021 04/20/2021 022 12:16 AM SALES AND DISTRIBUTION CLERK Assessment Noted Time PHQ-9 Depression Total Score: 0 10/05/19 21 7:37 AM CDT documented as of this encounter Care Teams Hvac Tech Relationship Specialty Start Date End Date Jimmie Dunaway MD [address]2 [facility] [address] [place] [address] PCP - General Family Medicine 01/17/15 03/28/22 Duyen Moreland MD [address] [facility] [address] [place] [address] PCP - General Family Medicine 03/29/22 Osmin Rosado MD [address] [place] [address] Consulting Physician Neurology 03/29/22 documented as of this encounter
--- OUTSIDE RECORDS SUMMARY | 2024-06-04 13:56 | XMS_ITS | Encounter Summary ---
Author Organization [facility] Address [address] [facility] [place] [place] [address] Phone Care Team Providers Care Street Flusher Driver Name Role Phone Jimmie Dunaway MD Primary Care Provider Duyen Moreland MD Primary Care Provider [phone] Osmin Rosado MD Unavailable [phone] Reason for Visit * Reason Comments Medication Refill Encounter Details Date Type Department Care Team (Late st Contact Info) Description 04/28/2020 Refill [facility] #1 [place] [address] Osmin Rosado MD [address] [place] [address] Medication Refill Social History Tobacco Use Types [...] COVID-19? No / Unsure 03/30/2020 7:36 AM HAUL DRIVER documented as of this encounter Plan of Treatment Upcoming Encounters Date Type Department Care Team (Latest Contact Info) Description 06/10/2024 1:45 PM HAUL DRIVER Occupational Therapy [facility] at [facility] [address] [facility], [facility] [address] [place] [address] Osmin Rosado MD [address] [place] [address] Kathleen Knox, OT [place] Discharge Disposition: Discharged to home or Selfcare 09/11/2024 1:00 PM CDT Office Visit [facility] #2 [place] [address] Osmin Rosado MD [address] [place] [address] documented as of this encounter Visit Diagnoses Diagnosis REM sleep behavior disorder documented in this encounter Additional Health Concerns Infection Onset Date Last Indicated Resolved Time COVID - 19 Confirmed 04/20/2021 04/20/2021 022 12:16 AM HAUL DRIVER Assessment Noted Time PHQ-9 Depression Total Score: 0 03/23/20 19 8:11 AM HAUL DRIVER documented as of this encounter Care Teams Street Flusher Driver Relationship Specialty Start Date End Date Jimmie Dunaway MD #2 [facility] [address] [place] [address] PCP - General Family Medicine 01/17/15 03/28/22 Duyen Moreland MD [address] [facility] [address] [place] [address] PCP - General Family Medicine 03/29/22 Osmin Rosado MD [address] [place] [address] Consulting Physician Neurology 03/29/22 documented as of this encounter
--- OUTSIDE RECORDS SUMMARY | 2024-06-04 13:56 | XMS_ITS | Encounter Summary ---
Author Organization [facility] Address [address] [facility] [place] [address] Phone Care Team Providers Care Press Set Up Person Name Role Phone Jimmie Dunaway MD Primary Care Provider Duyen Moreland MD Primary Care Provider [phone] Osmin Rosado MD Unavailable [phone] Reason for Visit * Reason Comments Medication Refill Encounter Details Date Type Department Care Team (Late st Contact Info) Description 06/07/2021 Refill [facility] #2 [place] [address] Osmin Rosado MD #2 [place] [address] Medication Refill Social History Tobacco [...] (Latest Contact Info) Description 06/10/2024 1:45 PM PAINTER HELPER SPRAY [facility]ational [facility] [address], [address] [place] [address] Osmin Rosado MD #2 [place] [address] Kathleen Knox, OT [place] Discharge Disposition: Discharged to home or Selfcare 09/11/2024 1:00 PM CDT Office Visit [facility] #2 [place] [address] Osmin Rosado MD #2 [place] [address] documented as of this encounter Visit Diagnoses Not on filedocumented in this encounter Additional Health Concerns Assessment Noted Time PHQ-9 Depression Total Score: 0 04/05/20 21 7:59 AM PAINTER HELPER SPRAY documented as of this encounter Care Teams Press Set Up Person Relationship Specialty Start Date End Date Jimmie Dunaway MD #2 [facility] [address] [place] [address] PCP - General Family Medicine 01/17/15 03/28/22 Duyen Moreland MD [address] [place] [address] PCP - General Family Medicine 03/29/22 Osmin Rosado MD #2 [place] [address] Consulting Physician Neurology 03/29/22 documented as of this encounter
--- OUTSIDE RECORDS SUMMARY | 2024-06-04 13:56 | XMS_ITS | Encounter Summary ---
Author Organization [facility] Address [address] [place] [address] Phone Care Team Providers Care Geropsychologist Name Role Phone Jimmie Dunaway MD Primary Care Provider [phone] Duyen Moreland MD Primary Care Provider [phone] Osmin Rosado MD Unavailable [phone] Reason for Visit * Reason Comments Medication Refill Encounter Details Date Type Department Care Team (Late st Contact Info) Description 04/02/2021 Refill [facility] [address] [place], [place] [phone] Jimmie Dunaway MD #[address] [address] Medication Refill Social History Tobacco Use Types [...] have Coronavirus / COVID-19? No / Unsure 04/05/2021 7:48 AM GHOST WRITER documented as of this encounter Miscellaneous Notes * Telephone Encounter - Luzma Cisneros RN - 04/03/2021 12:11 PM CST Name from pharmacy: TAMSULOSIN 0.4MG CAPSULES Will file in chart as: tamsulosin (FLOMAX) 0.4 MG Capsule The original prescription was discontinued on 02/03/2020 by Osmin Rosado MD Patient reported not taking - no recent activity on MEDD T WRITER documented in this encounter Plan of Treatment Upcoming Encounters Date Type Department Care Team (Latest Contact Info) Description 06/10/2024 1:45 PM GHOST WRITER [facility] [address] [facility], [address] [address] Osmin Rosado MD #2 [place] [address] Kathleen Knox, OT [place] Discharge Disposition: Discharged to home or Selfcare 09/11/2024 1:00 PM CDT Office Visit [facility] - Neurology - [place] #2 [place] [address] Osmin Rosado MD [address]2 [place] [address] documented as of this encounter Visit Diagnoses Not on filedocumented in this encounter Additional Health Concerns Infection Onset Date Last Indicated Resolved Time COVID - 19 Confirmed 04/20/2021 04/20/2021 022 12:16 AM GHOST WRITER Assessment Noted Time PHQ-9 Depression Total Score: 0 10/05/19 21 7:37 AM CDT documented as of this encounter Care Teams Geropsychologist Relationship Specialty Start Date End Date Jimmie Dunaway MD #2 [facility] [address] [place] [address] PCP - General Family Medicine 01/17/15 03/28/22 Duyen Moreland MD [address] [facility] [address] [place] [address] PCP - General Family Medicine 03/29/22 Osmin Rosado MD #2 [place] [address] Consulting Physician Neurology 03/29/22 documented as of this encounter
--- OUTSIDE RECORDS SUMMARY | 2024-06-04 13:57 | XMS_ITS | Encounter Summary ---
Author Organization [facility] Address [address] [place] [address] Phone Care Team Providers Care Disability Manager Name Role Phone Jimmie Dunaway MD Primary Care Provider Duyen Moreland MD Primary Care Provider [phone] Osmin Rosado MD Unavailable [phone] Reason for Visit * Reason Comments Medication Refill Encounter Details Date Type Department Care Team (Late st Contact Info) Description 07/05/2021 Refill [facility] #2 [place] [address] Jimmie Dunaway MD #[address] [address] Medication Refill Social History Tobacco Use Types [...] have Coronavirus / COVID-19? No / Unsure 06/27/2021 2:05 PM CRYSTAL MOUNTER documented as of this encounter Miscellaneous Notes * Telephone Encounter - Luzma Cisneros RN - 07/05/2021 3:11 PM CST Name from pharmacy: TAMSULOSIN 0.4MG CAPSULES Will file in chart as: tamsulosin (FLOMAX) 0.4 MG Capsule The original prescription was discontinued on 02/03/2020 by Osmin Rosado MD TAL MOUNTER documented in this encounter Plan of Treatment Upcoming Encounters Date Type Department Care Team (Latest Contact Info) Description 06/10/2024 1:45 PM CRYSTAL MOUNTER [facility] [address] [address] Osmin Rosado MD #2 [place] [address] Kathleen Knox, OT [place] Discharge Disposition: Discharged to home or Selfcare 09/11/2024 1:00 PM CDT Office Visit [facility] - [place] #2 [place] [address] Osmin Rosado MD #2 [place] [address] documented as of this encounter Visit Diagnoses Not on filedocumented in this encounter Additional Health Concerns Assessment Noted Time PHQ-9 Depression Total Score: 0 04/05/20 21 7:59 AM CRYSTAL MOUNTER documented as of this encounter Care Teams Disability Manager Relationship Specialty Start Date End Date Jimmie Dunaway MD #[address] [address] PCP - General Family Medicine 01/17/15 03/28/22 Duyen Moreland MD [address] [facility] [address] [place] [address] PCP - General Family Medicine 03/29/22 Osmin Rosado MD #2 [place] [address] Consulting Physician Neurology 03/29/22 documented as of this encounter
--- OUTSIDE RECORDS SUMMARY | 2024-06-04 13:57 | XMS_ITS | Encounter Summary ---
Author Organization [facility] Address [address] [facility] [place] [address] Phone Care Team Providers Care Sheet Metal Shop Helper Name Role Phone Duyen Moreland MD Primary Care Provider [phone] Osmin Rosado MD Unavailable [phone] Reason for Visit * PT/OT/ST (Routine) - Authorized Specialty Diagnoses / Procedures Referred By Contac t Referred To Contact Occupational Therapy Diagnoses Parkinsonism, unspecified Parkinsonism type (HCC) Osmin Rosado MD [address]2 [place] [address] Phone: tel: fax: [facility] [address], [address] [address] Phone: tel: fax: Referral ID Status Reason Start Date Expiration Date V isits Requested Visits Authorized [id number] Authorized 03/09/2024 50 50 Encounter Details Date Type Department Care Team (Latest Contact Info) Description 06/03/2024 1:45 PM LINUX ADMINISTRATOR Occupational Therapy [facility] [address], [address] [address] Osmin Rosado MD #2 [place] [address] Ann Gilliam OT [place] Parkinsonism, unspecified Parkinsonism type (HCC) (Primary Dx); Decreased activities of daily living (ADL) Discharge Disposition: Discharged to home or Selfcare Social History Tobacco Use Types Packs/Day Years [...] on file documented as of this encounter Miscellaneous Notes * Plan of Care - Ann Gilliam OT - 06/03/2024 1:45 PM CST Occupational Therapy Visit - Electronically signed by: ANN GILLIAM OT June 03, 2024 Subjective Subjective CURRENT SUBJECTIVE/SYMPTOMS: Patient has not had any falls. Carryover Assignment from previous visit/response: The goal of Week 2: improving the success rate, however, the patient is less comfortable , which requires greater commitment. The patient is at Week 2-Day 8: complete exercises an additional time this date. Spouse reports: exercises are going pretty good . She reports that they did not complete Saturday/Saturday; however, they have completed 2x/day otherwise. Are you completing the maximal daily exercises, how often, is it going well? Patient and spouse are completing exercises, as able. Objective Treatment Information: Day: 10/ Week: 3 Progress Note Due: 10th visit Initial Vitals: BP: 146/76/ Pre pain: not rated/10 (neck, shoulders, LBP, R hip) Post-treatment Vitals: BP: 148/82/ / Post pain: not rated/10 (neck, shoulders) TREATMENT: Learner: patient and significant other Readiness: acceptance Method: explanation, demonstration, handout and teach back Protocol: LSVT BIG Treatment Session Refer to [facility]B OT Rehab Therapy flowsheet for details/minutes. Home Exercises distributed via: LSVT packet provided at initial evaluation. Patient response to graded Maximal Daily Exercises/Functional Component Tasks/BIG Walking/HierarchyTasks provided today (as appropriate): Therapist initiated patient's Maximal Daily Exercises this date and BIG sit<>stand. See note for details. OBJECTIVE/TODAY'S TREATMENT: Maximal Daily Exercises: Exercise Description Repetition(s) Completed by Patient: 1 (sustained) Floor to Ceiling 8 reps Therapist & Patient 2 (sustained) Side to Side 8 each side Therapist & Patient 3 (repetitive) Forward Step 10 each side Therapist & Patient 4 (repetitive) Sideways Step 10 each side Therapist & Patient 5 (repetitive) Backward Step 10 each side Therapist & Patient 6 (repetitive) Forward Rock and Reach 10 each side (working up to 20) Therapist & Patient 7 (repetitive) Sideways Rock and Reach 8 each side (working up to 20) Therapist & Patient Additional Comment(s): Spouse used handouts to follow along with exercises and therapist provided physical demonstration of exercises. Due to patient's diagnosis of Lewy-Body Dementia, it is not likely he will be able to recall his exercises or even provide teach-back by looking at HEP. As sessionsprogress, therapist will ensure spouse and patient can complete exercises together, optimally. Patient is not able to demonstrate the standard maximal daily exercises, independently, and requires maximal overall cues for alignment correction and effort into the fingers, start/stop BIG, positioning,movement patterns, etc. Patient required modeling cues for the sequence of all exercises. Patient is able to combine movement with task breakdown of UE and LE components; however, is not able to perform these consistently and requires breakdown and then return to UE/LE components throughout. Writerdid not adjust cognitive load with LSVT BIG teaching techniques as patient is very distracted and unable to perform sequence without very strict reduction in use of verbal cues. Patient continues to require: Correction of patient error specifically is a significant distraction, increased amplitude of modeling is required to help with patient self-correction facilitating his kinesthetic learning, Postural instability has/has not improved significantly even with increased amplitude, and Supervisio n assistance with occasional minimal hands on assistance is no longer required.. Patient continues to require assist for: BIG posture, BIG hands, end BIG-every repetition, BIG effort, stomp!, model shoulder width EMILY, cues for symmetry of arm movements, and number of modeling cues required demonstration of exercise. Complexity Progression(s) added: no complexity progression this date Intensity Progression(s) added: no intensity progression this date Other Progression(s) added: no other progression this date Adaptation(s) completed (list numbered item(s)): General Adaptation(s): 1, 2, 3, 4, 5, 6, 7, 9, 10 1. Eliminate fear of falling 2. Need to feel successful 3. Positive reinforcement 4. Give support: holding chair, wall, countertop, etc. 5. Use tactile adjustments or facilitation 6. Break exercise into upper and lower body components 7. Do exercises with a cross country coach 8. Adapt exercises to seated position. 9. Reduce Distractions 10. Decrease hold time, number of repetitions 11. Allow additional week or two of treatment 12. Practice BIG walking with assistive devices. Floor- to-Ceiling Adaptation(s): Maintain neutral spine in cases of back pain, etc; work within available pain free range of motion in cases of underlying shoulder pathology Sqht-kn-Xenu Adaptation(s): Start with a slightly higher surface. Completed on plinth for a wider surface Stepping and Rocking Exercise Adaptation(s): Facilitation and shaping techniques; temporary use of external cues to scale or drive amplitude, break down into components due to: poor balance, motor planning, and processing Functional Component Tasks: 5 everyday tasks - 5 reps each Task Description Completed by Patient 1 Whs-cr-Hamfy Patient completed 5 reps of sit<>stand from 16 stool with 2 lb dowel and stating alphabet aloud (A-E). See note for details. 2 Dmv-uo-Jgbgjc Patient completed this date x 1 rep. 3 Pxidzm-sn-Rkb Patient completed x 1 rep. 4 Walk & Carry An Item See note for details. 5 Buttoning Not assessed this date due to time. Additional Comment(s): n/a Initial uncued task observation(s): Task 1: Patient completed 5 reps x 1 set from 16 stool this date with 2 lb dowel. Complexity progression: verbalizing alphabet (A-E), upon standing, aloud. Therapist demonstrated BIG sit<>stand with complexity and intensity to patient. Patient demonstrated fair+ overall teach-back of education. Patient demonstrated improved teach-back with with stating alphabetical letter with each repetition. Patient required initial assist with stating A,B and then was able to complete the remaining. Task 2: Patient completed x 1 rep only on elevated plinth (to simulate) bed. Patient demonstrated good teach-back of simulated scoot back into the bed after demonstration by therapist. Patient completed x 5 reps on a pillow. Patient demonstrated good teach back of sit to supine. Patient did requirecues for optimal placement of bilateral feet and knees. Therapist did discuss use of half bedrail versus modified noodle under the bed to prevent rolling out of bed. Task 3: Patient completed x 1 rep only on elevated plinth (to simulate) bed. Patient demonstrated good teach-back of supine to sit. Task 4: Patient participated in BIG walking this date with carrying a cone in each hand. Patient demonstrated optimal arm swing 25% of the time without cues. Patient did not demonstrate any droppage.Patient completed in a narrow hallway which made BIG steps and turns more difficult to achieve. Therapist walked in front of patient, as therapist added weaving in/out of 6 cones. Patient completed various complexity challenges, see below. Patient did have increased difficulty with weaving through cones with dual task cognitive challenge. Task 5: Not assessed this date due to time. Adaptation(s): increase success, build confidence, ensure safe performance, and adapt for co- morbidities, such as limited ROM, strength Complexity Progression(s) added: FCT 1: stating A-E alphabet aloud FCT 4: initial 2 reps (no complexity challenge); final 2 reps: counting backwards from 20-1; sayingABCs; listing 7 fruits Intensity Progression(s) added: FCT 2: completed on pillow FCT 5: weaving in/out of 6 cones Other Progression(s) added: keep it challenging, drive neuroplasticity, and add complex real work challenges Walking BIx/each Distance: Patient participated in BIG walking this date in hallway. Therapist setup 20' distance with 6 cones. Patient completed x 5 reps with R and L hand turns to weave through 6 cones. Patient carried two cones (one in each hand) and followed therapist. Time: n/a Additional Comment(s): Patient demonstrates good overall step length with weaving this date. Therapist walked in front of patient this date to assist with orientation to weaving between cones, drive amplitude, and assist with pace. Patient does demonstrate errors with addition of dual task cognitive challenge. Patient completed with carrying one cone in each hand to drive amplitude of UE BIG armswings with requiring cue as therapist noted decreased arm swing with addition of dual task cognitivechallenge. Patient demonstrated SIGNIFICANT difficulty with cognitive components. Progression(s) added: -initial 2 reps (no complexity challenge); final 2 reps: counting backwards from 20-1; ABCs; listing 7 fruits Hierarchy Tasks: Show me how you would do that? Patient identified tasks (1-3): Task Description Task 1 Zipping Task 2 Donning coat Task 3 TBD Task Analysis: Patient required the following during task analysis: break task down into manageableunits or sub-tasks, remove complexity and environmental/cognitive distractors, and identify the problem - where the behavior breaks down and why Show me how you would do that? Task 1 Analysis: Patient demonstrated zipping jacket this date with increased time. Task 2 Analysis: Patient required assist to [place] his coat this date. Patient only required assist to thread his arms in his jacket, related to shoulder immobility. Task 3 Analysis: TBD Additional Comment(s): see note for details Carryover Assignment: The goal of the carryover assignment is to show the patient that bigger movements are WNL outside of therapy and positively impact daily functional movement, which will progressfrom activities with guaranteed success to complex, real-life event during the day. This activity is assigned daily, is patient driven, addresses a sensory problem, and has progressive difficulty. This activity will be followed-up on each consecutive treatment day, as soon as the patient enters theroo. The patient was instructed to complete it until someone notices or says something about how well they did the activity. The goal of Week 3: the patient may only partially succeed, but the patient is encouraged to try over and over again. The patient is at Week 3-Day 9: getting into bed BIG. Therapist provided education and skilled therapy by: see note for details. ASSESSMENT: Patient demonstrates progress towards goals as evidenced by: fair+ overall teach-back of exercises provided this date with spouse demonstrating good overall understanding of exercises at this time. Patient participated in 8 reps of each maximal daily exercises this date with increased verbal and physical cues throughout. Therapist is adding dual-task cognitive challenges throughout to work on driving amplitude while completing additional tasks. Cognition is a large barrier to progression. Patient requires assist with amplitude, verbal/visual cues, assist with BIGNESS. Dual task cognitive loads are intolerable during functional tasks due to significant impairment of mentation. Patient responded well to lessened cognitive load. Patient's overall endurance and mentation are largest barriers to teach-back of education and he will continue to require assist with completion of all exercises and teach-back of techniques. Patient is currently not demonstrating the following progress towards secondary benefits as evidenced by: requiring less seated rest breaks throughout MDEs, patient tolerating intensity progression in sit<>stands, and improvement with trunk rotation when completing MDEs. Therapist provided skill by education to patient and spouse on: see note for details. Patient continues to demonstrate the following functional limitations: endurance, mobility, and motivation. Spouse and patient reports struggling with endurance with mobilities, such as walking, dressing, and getting in/out of bed. Skilled interventions are necessary as demonstrated by the need for: Maximum Daily Exercises, Functional Task Components, Hierarchy Tasks, Carryover Assignments and progression of HEPs Direction of therapeutic exercise to address strength, flexibility, and ROM impairments PLAN Long-Term Goals: to be achieved by discharge 1. Patient will require supervision with standard LSVT BIG HEP to maintain functional gains. (Progressing 06/03/24 MKK) 2. Patient will demonstrate ability to transfer on/off all home setting and community surfaces (including car) without assist or need for increased time reducing 5x sit to stand timing to < 10 seconds indicating a reduced risk of falls. (Progressing 06/03/24 MKK) 3. Patient will demonstrate ability to safely transfer in/out of a tub/shower without loss of balance/fall/freezing as evidenced by increase in single leg stance to 2 seconds each leg. 4. Patient will demonstrate symmetrical arm swing and larger amplitude step length with ambulation for household and community based tasks to reduce fall risk and bradykinesia as demonstrated by 30% distance increase in the 2 Minute Walk Test. (Progressing 06/03/24 MKK) PLAN OF CARE: Frequency/Duration: 4 days/week (consecutive) for 4/weeks. Skilled Training and Instruction for the following interventions: OT Initial Therapy Evaluation Neuromuscular re-education: 97651 Therapeutic Activity: 78276 The plan of care and goals were established with the patient who concurs. Patient has been given attendance policy at the time of initial evaluation. Certification from: 05/05/2024 through: 06/23/24 I certify the need for these services, furnished under this plan of treatment and while under my care. This information will be electronically/faxed/inbasketed for physician signature. . X ADMINISTRATOR documented in this encounter Plan of Treatment Upcoming Encounters Date Type Department Care Team (Latest Contact Info) Description 06/10/2024 1:45 PM LINUX ADMINISTRATOR [facility] [address] [place] [address] Osmin Rosado MD #2 [place] [address] Ann Gilliam OT [place] Discharge Disposition: Discharged to home or Selfcare 09/11/2024 1:00 PM CDT Office Visit [facility] - Neu[facility] #2 [place] [address] Osmin Rosado MD [address] [place] [address] documented as of this encounter Visit Diagnoses Diagnosis Parkinsonism, unspecified Parkinsonism type (HCC)- Primary Decreased activities of daily living (ADL) documented in this encounter Additional Health Concerns Assessment Noted Time PHQ-9 Depression Total Score: 0 10/05/19 8:28 AM CDT documented as of this encounter Care Teams Sheet Metal Shop Helper Relationship Specialty Start Date End Date Duyen Moreland MD [address] [place], [place] [id number] PCP - General Family Medicine 03/29/22 Osmin Rosado MD #[address] [place] [address] Consulting Physician Neurology 03/29/22 documented as of this encounter
--- OUTSIDE RECORDS SUMMARY | 2024-06-04 13:57 | XMS_ITS | Encounter Summary ---
Author Organization [facility] Address [address] [facility] [place] [address] Phone Care Team Providers Care Assistant Curator Name Role Phone Jimmie Dunaway MD Primary Care Provider [phone] Duyen Moreland MD Primary Care Provider [phone] Osmin Rosado MD Unavailable [phone] Reason for Visit * Reason Comments Medication Refill Encounter Details Date Type Department Care Team (Late st Contact Info) Description 10/12/[address] [facility] Medical [facility] - Family [facility] #2 [place] [address] Jimmie Dunaway MD [address] [address] Medication Refill Social History Tobacco Use Types [...] Exposure Response Date Recorded In the last 10 days, have yo u been in contact with someone who was confirmed or suspected to have Coronavirus/COVID-19? No / Unsure 10/04/2021 8:07 AM CDT documented as of this encounter Miscellaneous Notes * Telephone Encounter - Luzma Cisneros Edward RN - 10/13/2021 8:08 AM CDT Medication failed the protocol, provider to review and approve the medication order if appropriate. Requested Prescriptions Pending Prescriptions Disp Refills amLODIPine (NORVASC) 10 MG Tablet [Pharmacy Med Name: AMLODIPINE BESYLATE 10MG TABLETS] 90 Tablet 3 Sig: Take 1 Tablet by mouth daily. Calcium-Channel Blockers Protocol Passed - 10/12/2021 12:57 PM Passed - BP on record in the past year Clinician-entered: BP Readings from Last 3 Encounters: 10/04/21 118/68 09/28/21 114/60 06/27/21 146/70 Patient-entered: No data recorded Passed - Visit with relevant provider in past 12 months or upcoming 90 days Recent Visits Date Type Provider Dept 10/04/21 Office Visit Jimmie Dunaway MD [facility] 04/05/21 Office Visit Jim[facility] [address] Showing recent visits within past 365 days and meeting all other requirements Future Appointments No visits were found meeting these conditions. Showing future appointments within next 90 days and meeting all other requirements citalopram (CeleXA) 20 MG Tablet [Pharmacy Med Name: CITALOPRAM 20MG TABLETS] 90 Tablet 3 Sig: Take 1 Tablet by mouth daily. Citalopram (Celexa) (6 Month Refill Only) Protocol Failed - 10/12/2021 12:57 PM Failed - Has an encounter in the past 6 months with a depression, anxiety, adjustment disorder, OCD, or PTSD visit diagnosis Passed - Citalopram dose is less than or equal to 40mg / day Passed - Visit with relevant provider in past 6 months or upcoming 90 days Recent Visits Date Type Provider Dept 10/04/21 Office Visit Jimmie Dunaway MD [facility] [address] Showing recent visits within past 182 days and meeting all other requirements Future Appointments No visits were found meeting these conditions. Showing future appointments within next 90 days and meeting all other requirements Passed - Patient has established therapy with Citalopram for at least 6 months documented in this encounter Plan of Treatment Upcoming Encounters Date Type Department Care Team (Latest Contact Info) Description 06/10/2024 1:45 PM SUPERVISOR INTERNATIONAL RESERVATIONS [facility] [address] [place] [id number] Osmin Rosado MD [address] [place] [address] Kathleen Knox, OT [place] Discharge Disposition: Discharged to home or Selfcare 09/11/2024 1:00 PM CDT Office Visit [facility] #2 [place] [address] Osmin Rosado MD [address] [place] [address] documented as of this encounter Visit Diagnoses Not on filedocumented in this encounter Additional Health Concerns Assessment Noted Time PHQ-9 Depression Total Score: 0 10/05/19 22 8:28 AM CDT documented as of this encounter Care Teams Assistant Curator Relationship Specialty Start Date End Date Jimmie Dunaway MD #2 [facility] [address] [place] [address] PCP - General Family Medicine 01/17/15 03/28/22 Duyen Moreland MD [address] [facility] [address] [place] [address] PCP - General Family Medicine 03/29/22 Osmin Rosado MD [address]2 [place] [address] Consulting Physician Neurology 03/29/22 documented as of this encounter
--- OUTSIDE RECORDS SUMMARY | 2024-06-04 13:57 | XMS_ITS | Encounter Summary ---
Author Organization [facility] Address [address] [facility] [place] [address] Phone Care Team Providers Care Federal Law Clerk Name Role Phone Duyen Moreland MD Primary Care Provider [phone] Osmin Rosado MD Unavailable [phone] Reason for Visit * Reason Onset Date Comments Appointment 06/04/2024 Patient's spouse called to cancel patient's appointment due to having plumbing work needing done today. PAS took the phone call. Encounter Details Date Type Department Care Team (Late st Contact Info) Description 06/04/2024 [facility] [address] [place] [address] Kathleen Knox, OT [place] Appointment (Patient's spouse called to cancel patient's appointment due to having plumbing work needing done today. PAS took the phone call. ) Social History Tobacco Use Types Packs/Day Years [...] encounter Miscellaneous Notes * Telephone Encounter - Kathleen Knox OT - 06/04/2024 10:25 AM CST ----- Message from Tiana sent at 06/04/2024 9:43 AM GOLD MINER BLASTING ----- Regarding: cx Khanh's called to cancel due to having plumbing work done today MINER BLASTING documented in this encounter Plan of Treatment Upcoming Encounters Date Type Department Care Team (Latest Contact Info) Description 06/10/2024 1:45 PM GOLD MINER BLASTING [facility] [address] [facility], [address] [place] [address] Osmin Rosado MD [address]2 [place] [address] Kathleen Knox OT [place] Discharge Disposition: Discharged to home or Selfcare 09/11/2024 1:00 PM CDT Office [facility] Medical [facility] - Neurology [facility] #2 [place] [address] Osmin Rosado MD [address]2 [place] [address] documented as of this encounter Visit Diagnoses Not on filedocumented in this encounter Additional Health Concerns Assessment Noted Time PHQ-9 Depression Total Score: 0 10/05/19 22 8:28 AM CDT documented as of this encounter Care Teams Federal Law Clerk Relationship Specialty Start Date End Date Duyen Moreland MD [address] [place] [address] PCP - General Family Medicine 03/29/22 Osmin Rosado MD [address]2 [place] [address] Consulting Physician Neurology 03/29/22 documented as of this encounter
--- OUTSIDE RECORDS SUMMARY | 2024-06-04 13:57 | XMS_ITS | Encounter Summary ---
Author Organization [facility] Address [address] [facility] [place] [address] Phone Care Team Providers Care Brokerage Clerk Name Role Phone Duyen Moreland MD Primary Care Provider [phone] Osmin Rosado MD Unavailable Reason for Visit * Reason Comments Medication Refill Encounter Details Date Type Department Care Team (Late st Contact Info) Description 03/19/2023 Refill [facility] Medical Group - Family [facility] #2 [place] [phone] Jimmie Dunaway MD #[address] [address] Medication Refill Social History Tobacco Use Types [...] suspected to have Coronavirus/COVID-19? No / Unsure 03/07/2023 1:39 PM HOB MILL OPERATOR documented as of this encounter Plan of Treatment Upcoming Encounters Date Type Department Care Team (Latest Contact Info) Description 06/10/2024 1:45 PM HOB MILL OPERATOR [facility] [address] [place] [address] Osmin Rosado MD [address]2 [place] [address] Kathleen Knox, OT [place] Discharge Disposition: Discharged to home or Selfcare 09/11/2024 1:00 PM CDT Office Visit [facility] - Neurology [facility] #2 [place] [address] Osmin Rosado MD [address]2 [place] [address] documented as of this encounter Visit Diagnoses Diagnosis Primary osteoarthritis, unspecified site documented in this encounter Additional Health Concerns Assessment Noted Time PHQ-9 Depression Total Score: 0 10/05/19 22 8:28 AM CDT documented as of this encounter Care Teams Brokerage Clerk Relationship Specialty Start Date End Date Duyen Moreland MD [address] [facility] [address] [place] [address] PCP - General Family Medicine 03/29/22 Osmin Rosado MD [address]2 [place] [address] Consulting Physician Neurology 03/29/22 documented as of this encounter
--- OUTSIDE RECORDS SUMMARY | 2024-06-04 13:57 | XMS_ITS | CONTINUITY OF CARE DOCUMENT ---
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 Kena Lam Atrial Fibrillation active Priya carbajal MD Bradycardia, severe active Priya carbajal MD Dementia active Alexander Ahrafael Hypertension active Rodney Stephens Afib completed - Gerri Arthur MD Cardiology examination completed 9 - Gerri Arthur MD Fatigue--stress nuc nl, 04/2023 active Gerri Arthur MD Parkinson's disease active Gerri Arthur MD Hyponatremia active Gerri Arthur MD Cardiology examination active Alexander Aldridge ENCOUNTERS Date Type Provider Location Encounter Diag nosis - In-person encounter Office Visit Gerri Arthur MD [facility] Cardiology examination - In-person encounter Office Visit Gerri Arthur MD [facility] - In-person encounter Office Visit Gerri Arthur MD [facility] - In-person encounter Office Visit Gerri Arthur MD [facility] - In-person encounter Office Visit Gerri Arthur MD [facility] AfibCardiology examinationHyponatremia - In-person encounter Office Visit Priya Pérez MD [facility] - In-person encounter Office Visit Gerri Arthur MD [facility] - In-person encounter Office Visit Gerri Arthur MD [facility] Fatigue--stress nuc nl, arkinson's disease VITAL SIGNS Date Observation Value Provider Body Mass Index (Ratio) 24.07 kg/m2 Kirk Arthur MD blood pressure, diastolic 81 mm[Hg] [facility], systolic 147 mm[Hg] [facility], oximetry 97 % [facility] pulse rate 77 /min [facility] respiratory rate E&M 12 /min [facility] weight E&M 163 [lb_av] [facility] height E&M 69 [in_i] [facility] blood pressure, cuff size regular [facility] Body Mass Index (Ratio) 22.74 kg/m2 Kirk Arthur MD blood pressure, diastolic 81 mm[Hg] Ja rret blood pressure, systolic 147 mm[Hg] Jar ret pulse rate 60 /min Prakash adam blood pressure, cuff size regular Ja rret oxygen saturation, oximetry 99 % Prakash respiratory rate E&M 14 /min weight E&M 154 [lb_av] Prakash height E&M 69 [in_i] Prakash Body Mass Index (Ratio) 23.77 kg/m2 Kirk Arthur MD blood pressure, diastolic 70 mm[Hg] Mi Ivan blood pressure, systolic 115 mm[Hg] Any a Moncho pulse rate 63 /min Parul blood pressure, cuff size large An deniz Ivan oxygen saturation, oximetry 97 % Parul Moncho weight E&M 161 [lb_av] Parul height E&M 69 [in_i] Parul Body Mass Index (Ratio) 23.48 kg/m2 Kirk Arthur MD blood pressure, cuff size regular [facility] blood pressure, diastolic 94 mm[Hg] [facility] blood pressure, systolic 160 mm[Hg] Dino [facility] pulse rate 72 /min Prakash oxygen saturation, oximetry 97 % Prakash respiratory rate E&M 12 /min Prakash weight E&M 159 [lb_av] Prakash height E&M 69 [in_i] Prakash Body Mass Index (Ratio) 23.18 kg/m2 Herman Porter pulse rate 79 /min Yahaira Vigil respiratory rate E&M 18 /min Yahaira Vigil blood pressure, cuff size regular lanre Vigil blood pressure, diastolic 95 mm[Hg] lanre Vigil blood pressure, systolic 168 mm[Hg] She cassidy Vigil oxygen saturation, oximetry 97 % Yahaira Vigil weight E&M 157 [lb_av] Yahaira Vigil height E&M 69 [in_i] Yahaira Vigil blood pressure, diastolic 71 mm[Hg] arianaLogic blood pressure, systolic 128 mm[Hg] Jessica Keithic Body Mass Index (Ratio) 22.30 kg/m2 Alexander Aldridge weight E&M 151 [lb_av] Yahaira Vigil oxygen saturation, oximetry 99 % Yahaira Vigil blood pressure, cuff size regular lanre Vigil blood pressure, diastolic 71 mm[Hg] lanre Vigil blood pressure, systolic 128 mm[Hg] She cassidy Vigil pulse rate 80 /min Yahaira Vigil respiratory rate E&M 20 /min Yahaira Vigil height E&M 69 [in_i] Yahaira Vigil Body Mass Index (Ratio) 23.03 kg/m2 Kirk Arthur MD blood pressure, diastolic 59 mm[Hg] arianaLog blood pressure, systolic 121 mm[Hg] Jessica Keithog blood pressure, diastolic 59 mm[Hg] lanre Vigil blood pressure, systolic 121 mm[Hg] She rradam Vigil blood pressure, cuff size regular lanre Vigil respiratory rate E&M 20 /min Yahaira Vigil oxygen saturation, oximetry 99 % Yahaira Vigil pulse rate 96 /min Yahaira Vigil weight E&M 156 [lb_av] Yahaira Vigil height E&M 69 [in_i] Yahaira Vigil Body Mass Index (Ratio) 22.74 kg/m2 Kirk Arthur MD blood pressure, diastolic 59 mm[Hg] St jaz Velasquez blood pressure, systolic 129 mm[Hg] Sta marianne Velasquez oxygen saturation, oximetry 98 % Daly Velasquez pulse rate 66 /min Daly Velasquez respiratory rate E&M 18 /min Daly Resendiz barbara height E&M 69 [in_i] Daly Velasquez weight E&M 154 [lb_av] Daly Velasquez ALLERGIES No Known Drug Allergies HISTORY OF MEDICATION USE Medication Status Instructions Dates Provider Indications [facility] ments lisinopril 20 mg tablet active Take 1 tablet by mouth twice a day Alexander Aldridge Eliquis 2.5 mg tablet active TAKE 1 TABLET BY MOUTH TWICE DAILY Becca Arias omeprazole 20 mg capsule,delayed release(DR/EC) active Alexander Aldrigde donepezil 10 mg tablet active TAKE 1 TABLET BY MOUTH EVERY NIGHT Alexander Aldridge amlodipine 10 mg tablet active Take 1 tablet by mouth once a day take at night Gerri Arthur MD sodium bicarbonate 650 mg tablet active TAKE 1 TABLET BY MOUTH DAILY FOR HYPONATREMIA Alexander Aldridge lisinopril 10 mg tablet completed Take 1 tablet by mouth twice a day - Alexander Aldridge famotidine 20 mg tablet completed as needed for indigestion - Alexander Aldridge cephalexin 500 mg capsule completed 1 capsule by mouth three times a day - Rhonda Chappell NP carbidopa-levod opa 25-100 mg tablet active three times per day Rhonda Chappell NP dutasteride 0.5 mg capsule active daily Rhonda Chappell NP clonazepam 0.5 mg tablet active every night Rhonda Chappell NP tamsulosin 0.4 mg capsule active TAKE 1 CAPSULE BY MOUTH EVERY DAY Rhonda Chappell NP donepezil 10 mg tablet completed - Michelle Guzmán amlodipine 10 mg tablet completed Take 1 tablet by mouth twice daily - Alexander Aldridge lisinopril-hydr ochlorothiazide 20-12.5 mg tablet completed Take 1 tablet by mouth once a day - Alexander john citalopram 20 mg tablet active 1 tablet by mouth once a day Rhonda Chappell NP tramadol 50 mg tablet active as needed Rhonda Chappell NP Eliquis 2.5 mg tablet completed 1 tablet by mouth twice a day - Becca Buschmaddiehannah SOCIAL HISTORY Date Observation Value Provider passive cigarette sm rose exposure no Alexander Aldridge chewing tobacco use Never Alexander szymanski smoking, year quit 1973 Alexander arnold smoking, date started 1952 Alexander rodrigues smoking history, tot al pack/day 1-2 Alexander Aldridge cigarette use yes Alexander Aldridge smoking status Former smoker Alexander Blackwood i passive cigarette sm rose exposure no Alexander Aldridge chewing tobacco use Never Alexander szymanski smoking, year quit 1973 Alexander arnold smoking, date started 1952 Alexander rodrigues smoking history, tot al pack/day 1-2 Alexander Aldridge cigarette use yes Alexander Aldridge smoking status Former smoker Alexander Blackwood i passive cigarette sm rose exposure no Parulian Ivan chewing tobacco use Never Parul Mehul lia smoking, year quit 1973 Parul Will iams smoking, date started 1952 Parul W servandoia smoking history, tot al pack/day 1-2 Parulian Ivan cigarette use yes Parulian Ivan smoking status Former smoker Parulian Bernstein s passive cigarette sm rose exposure no Alexander Blackwoodda chewing tobacco use Never Alexander donda smoking, year quit 1973 Alexander arnold smoking, date started 1952 Alexander rodrigues smoking history, tot al pack/day 1-2 Alexander Aldridge cigarette use yes Alexander Aldridge smoking status Former smoker Alexander Blackwood i passive cigarette sm rose exposure no Gerri Arthur MD chewing tobacco use Never Gerri givens MD smoking, year quit 1973 Gerri rg MD smoking, date started 1952 Gerri Arthur MD smoking history, tot al pack/day 1-2 Gerri Arthur MD cigarette use yes Gerri Resendiz smoking status Former smoker Gerri Arthur MD social history reviewed E&M revi ewed - no changes required Gerri Arthur MD smoking, date started 1952 Bishop young Fendler [employer] smoking, year quit 1973 Rhonda Bendler [employer] smoking history, tot al pack/day 1-2 Rhonda Contrerasdler [employer] cigarette use yes Rhonda Deborah er [employer] smoking status Former smoker Rhonda Ben dler [employer] social history reviewed E&M revi ewed - no changes required Priya Pérez MD passive cigarette sm rose exposure no Michelle Guzmán chewing tobacco use Never Michelle neri smoking status Never smoker Michelle Guzmán social history reviewed E&M revi ewed - no changes required Michelle Guzmán social history E&M S moking History: Rosalinda nichols has never smoked. Michelle Guzmán social history E&M S moking History: Rosalinda nichols has never smoked. Kim Whitfield social history reviewed E&M revi ewed - no changes required Kim Whitfield passive cigarette sm rose exposure no Daly Velasquez chewing tobacco use Never Daly Palumbo smoking status Never smoker Daly Ron INSURANCE PROVIDERS Payer name Policy type / Coverage type Shiva red green party ID [facility] [id number] [place] MED[place] Medicare [id number] ADVANCE DIRECTIVES Name Date DISCUSSED - NO DECISION MADE TREATMENT PLAN Date Name Performer [id number],BGerri MD [id number],SGerri MD [id number],SGerri MD [id number],SGerri MD [id number],W,P OTASSIUM 4.1 C ALCIUM 8.5 G FR >60 I NR 1.1 Na 131 no reversible causes O rders: P jasbir 21+ (CPT-49846) Priya Pérez MD [id number],W, O rders: P jasbir 21+ (CPT-63978) Priya Pérez MD [id number],SGerri MD [id number],SGerri MD [id number],SGerri MD [id number],WGerri MD [id number],WGerri MD [id number],S, Kim Kim obsmeangel [id number],SKim [id number],S, Kim Kim obsmeyer [id number],SKim obsmeyer Cardiology:This visi t has been a part of the consistent, comprehensive, and ongoing management of the chronic medical condition(s) listed above for the patient. BP today: 147/81 P rior BP: 147/81 (10/21/2023) His updated medication list for this problem includes: Lisinopril 20 Mg Tablet (Lisinopril) ..... Take 1 tablet by mouth twice a day Amlodipine 10 Mg Tablet (Amlodipine) ..... Take 1 tablet by mouth once a day take at night Lisinopril 10 Mg Tablet (Lisinopril) ..... Take 1 tablet by mouth twice a day Gerri Arthur MD Cardiology Gerri Arthur MD Cardiology Gerri Arthur MD Cardiology Gerri Arthur MD Cardiology Alexander Aldridge Cardiology Alexander Aldridge Cardiology: H is updated medication list for this problem includes: Amlodipine 5 Mg Tablet (Amlodipine) ..... Take 1 tablet by mouth once nightly Lisinopril 10 Mg Tablet (Lisinopril) ..... Take 1 tablet by mouth once a day in the morning BP today: 147/81 P rior BP: 115/70 (07/17/2023) Alexander Aldridge Cardiology Alexanderfrancie Aldridge Cardiology Alexanderfrancie Aldridge Cardiology: B P today: 115/70 P rior BP: 160/94 (05/14/2023) His updated medication list for this problem includes: Amlodipine 5 Mg Tablet (Amlodipine) ..... Take 1 tablet by mouth once nightly Lisinopril 10 Mg Tablet (Lisinopril) ..... Take 1 tablet by mouth once a day in the morning Alexander Aldridge Cardiology Alexander Aldridge Cardiology Alexander Figueroazada Cardiology Alexander Figueroazada Telehealth Alexander Aldridge Telehealth: H is updated medication list for this problem includes: Amlodipine 5 Mg Tablet (Amlodipine) ..... Take 1 tablet by mouth twice daily Lisinopril 10 Mg Tablet (Lisinopril) ..... Take 1 tablet by mouth twice a day [facility]health [facility] Cardiology [facility] Cardiology [facility] Cardiology [facility] Cardiology: B P today: 160/94 P rior BP: 168/95 (01/15/2023) The following medications were removed from the medication list: Amlodipine 10 Mg Tablet (Amlodipine) ..... Take 1 tablet by mouth twice daily Lisinopril-hydrochlorothiazide 20-12.5 Mg Tablet (Lisinopril-hydrochlorothiazide) ..... Take 1 tablet by mouth once a day His updated medication list for this problem includes: Amlodipine 5 Mg Tablet (Amlodipine) ..... Take 1 tablet by mouth twice daily Lisinopril 10 Mg Tablet (Lisinopril) ..... Take 1 tablet by mouth twice a day Alexanderfrancie Aldridge Cardiology Gerri Arthur MD Cardiology Gerri Arthur MD Cardiology Gerri Arthur MD Cardiology Gerri Arthur MD Telehealth:POTASSIUM 4.1 C ALCIUM 8.5 G FR >60 I NR 1.1 Na 131 no reversible causes O rders: P jasbir 21+ (CPT-15236) Priya Pérez MD Telehealth: O rders: P jasbir 21+ (CPT-48301) Priya Pérez MD Cardiology Gerri Arthur MD Cardiology Gerri Arthur MD Cardiology Gerri Arthur MD Cardiology Gerri Arthur MD Cardiology Gerri Arthur MD Cardiology Kim De La Cruz eyer Cardiology Kim De La Cruz eyer Cardiology Kim De La Cruz eyer Cardiology Kim De La Cruz eyer Date Name Stress Regadenoson URINALYSIS, COMPLETE COMPREHENSIVE METABO LIC PANEL, W/EGFR Partial Thromboplast in Time, Activated PROTHROMBIN TIME WIT H INR CBC (INCLUDES DIFF/P LT) Holter Monitor 48 hr Complete Echo Phone 21+ HISTORY OF PROCEDURES Procedure Date Procedure Name Provider Procedure Notes S tatus Complex e/m visit ad d on Gerri Arthur MD completed EKG Gerri Arthur MD completed EKG Priya Pérez MD comp leted EKG Gerri Arthur MD completed EKG Gerri Arthru MD completed
[2024-06-04 14:27] LABS: Anion Gap 9 mmol/L (4-12); Blood Urea Nitrogen 27 mg/dL (9-20); Calcium 8.5 mg/dL (8.4-10.2); Carbon Dioxide 27 mmol/L (22-30); Chloride 101 mmol/L (98-107); Estimated Glomerular Filt Rate > 60; Glucose 128 mg/dL (65-110); Phosphorus 4.5 mg/dL (2.5-4.5); Potassium 4.8 mmol/L (3.4-5.0); Sodium 137 mmol/L (137-145)
== END 2024-06-04 13:52 | disposition home or self-care (01) ==
LOC: ANHLAB 13:53
PROVIDERS: PCP Family Medicine; Visit Provider Internal Medicine Nephrology
DX: E87.1 Hypo-osmolality and hyponatremia (principal)
CPT/HCPCS: 36415; 80069

== ENCOUNTER 2024-11-17 09:23 | Outpatient (CLI) | payer MEDICARE, SELFPAY ==
--- OUTSIDE RECORDS SUMMARY | 2024-11-17 09:26 | XMS_ITS | Encounter Summary ---
Author Organization [facility] Address [address] [facility] [place] [address] Phone Care Team Providers Care Sole Stapler Welt Name Role Phone Jimmie Dunaway MD Primary Care Provider Duyen Moreland MD Primary Care Provider [phone] Osmin Rosado MD Unavailable [phone] Osmin Rosado MD Unavailable [phone] Reason for Visit * Reason Comments Medication Refill Encounter Details Date Type Department Care Team (Late st Contact Info) Description 07/05/2021 [facility]ill [facility] #2 [place] [id number] Jimmie Dunaway MD [address] [address] Medication Refill Social History Tobacco Use Types [...] COVID-19? No / Unsure 06/27/2021 2:05 PM MOUNTER CLARINETS documented as of this encounter Miscellaneous Notes * Telephone Encounter - Luzma Cisneros RN - 07/05/2021 3:11 PM CST Name from pharmacy: TAMSULOSIN 0.4MG CAPSULES Will file in chart as: tamsulosin (FLOMAX) 0.4 MG Capsule The original prescription was discontinued on 02/03/2020 by Osmin Rosado MD TER CLARINETS documented in this encounter Plan of Treatment Upcoming Encounters Date Type Department Care Team (Late st Contact Info) Description 03/18/2025 10:00 AM MOUNTER CLARINETS Office Visit [facility] - Neu[facility] #2 [place] [address] Osmin Rosado MD #2 [place] [address] documented as of this encounter Visit Diagnoses Not on filedocumented in this encounter Additional Health Concerns Assessment Noted Time PHQ-9 Depression Total Score: 0 04/05/20 21 7:59 AM MOUNTER CLARINETS documented as of this encounter Care Teams Sole Stapler Welt Relationship Specialty Start Date End Date Jimmie Dunaway MD #[address] [address] PCP - General Family Medicine 01/17/15 03/28/22 Duyen Moreland MD [address] [place] [address] PCP - General Family Medicine 03/29/22 Osmin Rosado MD #2 [place] [address] Consulting Physician Neurology 03/29/22 Osmin Rosado MD #2 [place] [address] Consulting Physician Neurology 09/15/24 documented as of this encounter
--- OUTSIDE RECORDS SUMMARY | 2024-11-17 09:26 | XMS_ITS | Encounter Summary ---
Author Organization [facility] Address [address] [facility] [place] [address] Phone Care Team Providers Care Respiratory Therapy Instructor Name Role Phone Jimmie Dunaway MD Primary Care Provider Duyen Moreland MD Primary Care Provider [phone] Osmin Rosado MD Unavailable [phone] Osmin Rosado MD Unavailable [phone] Reason for Visit * Reason Comments Medication Refill Encounter Details Date Type Department Care Team (Late st Contact Info) Description 04/14/2020 Refill [facility] - [facility] #2 [place] [address] Jimmie Dunaway MD #[address] [address] Medication Refill Social History Tobacco Use Types [...] COVID-19? No / Unsure 03/30/2020 7:36 AM SUPERVISOR PILE DRIVING documented as of this encounter Miscellaneous Notes * Telephone Encounter - Jimmie Dunaway MD - 04/14/2020 11:16 AM CST Prescription pending signature RVISOR PILE DRIVING * Telephone Encounter - Luzma Cisneros RN [...] Outpatient Visits 1 week ago Essential [facility] Jimmie Wu MD 6 months ago Essential hypertension [facility] Jimmie Wu MD 1 year ago Essential hypertension [facility] Jimmie Wu MD 1 year ago Primary insomnia [facility] Jimmie Wu MD 2 years ago Essential hypertension [facility] Jimmie Wu MD Upcoming Appointments Future Appointments In 2 weeks Osmin Rosado MD [facility] Neurology ALIZE Chen In 5 months Lab, [facility], [facility] In 5 months Jimmie Dunaway MD [facility] ALIZE Chen ELECTROPLATING SALES REPRESENTATIVE - Recent and Past Visits Recent Visits Date Type Provider Dept 04/04/20 Telemedicine Jimmie Dunaway MD [facility] Gustavo 09/22/19 [facility] Office Visit Jimmie Dunaway MD [facility] [place] Showing recent visits within past 460 days with a meds authorizing provider and meeting all other requirements Future Appointments No visits were found meeting these conditions. Showing future appointments within next 90 days with a meds authorizing provider and meeting all other requirements RVISOR PILE DRIVING documented in this encounter Plan of Treatment Upcoming Encounters Date Type Department Care Team (Late st Contact Info) Description 03/18/2025 10:00 AM SUPERVISOR PILE DRIVING Office Visit [facility] - Neurology - [place] #2 [place] [address] Osmin Rosado MD #2 [place] [address] documented as of this encounter Visit Diagnoses Not on filedocumented in this encounter Additional Health Concerns Infection Onset Date Last Indicated Resolved Time COVID - 19 Confirmed 04/20/2021 04/20/2021 022 12:16 AM SUPERVISOR PILE DRIVING Assessment Noted Time PHQ-9 Depression Total Score: 0 03/23/20 19 8:11 AM SUPERVISOR PILE DRIVING documented as of this encounter Care Teams Respiratory Therapy Instructor Relationship Specialty Start Date End Date Jimmie Dunaway MD #[address] [address] PCP - General Family Medicine 01/17/15 03/28/22 Duyen Moreland MD [address] [facility] [address] [place] [address] PCP - General Family Medicine 03/29/22 Osmin Rosado MD #2 [place] [address] Consulting Physician Neurology 03/29/22 Osmin Rosado MD #2 [place] [address] Consulting Physician Neurology 09/15/24 documented as of this encounter
--- OUTSIDE RECORDS SUMMARY | 2024-11-17 09:26 | XMS_ITS | Encounter Summary ---
Author Organization [facility] Address [address] [facility] [place] [address] Phone Care Team Providers Care Blue Leather Setter Name Role Phone Jimmie Dunaway MD Primary Care Provider Duyen Moreland MD Primary Care Provider [phone] Osmin Rosado MD Unavailable [phone] Osmin Rosado MD Unavailable [phone] Reason for Visit * Reason Comments Medication Refill Encounter Details Date Type Department Care Team (Late st Contact Info) Description 06/07/2021 Refill [facility] #2 [place] [address] Osmin Rosado MD #2 [place] [address] Medication Refill Social History Tobacco Use Types Packs/Day Years Used Date Smoking Tobacco: Former Smokeless Tobacco: Never Alcohol Use Standard Drinks/Week Comments No 0 (1 standard drink = 0.6 oz pur e alcohol) PHQ-2 Answer Date Recorded Total Score - Questions 1-9 0 12/11/2020 Sexually Active Control Partners Comments Not Currently Sex and Gender Information Value Date Recorded Sex Assigned at Male 01/07/2024 1:02 PM CDT Legal Sex Male 9:08 PM CDT Gender Identity Not on file Sexual Orientation Not on file documented as of this encounter Plan of Treatment Upcoming Encounters Date Type Department Care Team (Late st Contact Info) Description 03/18/2025 10:00 AM POTATO SEED CUTTER Office Visit [facility] #2 [place] [address] Osmin Rosado MD #2 [place] [address] documented as of this encounter Visit Diagnoses Not on filedocumented in this encounter Additional Health Concerns Assessment Noted Time PHQ-9 Depression Total Score: 0 04/05/20 7:59 AM POTATO SEED CUTTER documented as of this encounter Care Teams Blue Leather Setter Relationship Specialty Start Date End Date Jimmie Dunaway MD #[address] [address] PCP - General Family Medicine 01/17/15 03/28/22 Duyen Moreland MD [address] [email or web address] [address] [place] [address] PCP - General Family Medicine 03/29/22 Osmin Rosado MD #2 [place] [address] Consulting Physician Neurology 03/29/22 Osmin Rosado MD #2 [place] [address] Consulting Physician Neurology 09/15/24 documented as of this encounter
--- OUTSIDE RECORDS SUMMARY | 2024-11-17 09:26 | XMS_ITS | Encounter Summary ---
Author Organization [facility] Address [address] [facility] [place] [address] Phone Care Team Providers Care Compliance Quality Performance Analyst Name Role Phone Duyen Moreland MD Primary Care Provider [phone]- [phone] Osmin Rosado MD Unavailable [phone] Osmin Rosado MD Unavailable [phone] Reason for Visit * Reason Comments Medication Refill Encounter Details Date Type Department Care Team (Late st Contact Info) Description 07/22/2022 Refill [facility]2 [place] [address] Caprice Sepulveda, ASSISTANT PROFESSOR OF GERMAN, GRADE TAMPER #2 [place] [address] Medication Refill Social History Tobacco Use Types [...] st Contact Info) Description 03/18/2025 10:00 AM OPERATOR CATALYST CONCENTRATION Office Visit [facility]2 [place] [address] Osmin Rosado MD [address]2 [place] [address] documented as of this encounter Visit Diagnoses Not on filedocumented in this encounter Additional Health Concerns Assessment Noted Time PHQ-9 Depression Total Score: 0 10/05/19 22 8:28 AM CDT documented as of this encounter Care Teams Compliance Quality Performance Analyst Relationship Specialty Start Date End Date Duyen Moreland MD [address] [facility] [address] [place] [address] PCP - General Family Medicine 03/29/22 Osmin Rosado MD #2 [place] [address] Consulting Physician Neurology 03/29/22 Osmin Rosado MD #2 [place] [address] Consulting Physician Neurology 09/15/24 documented as of this encounter
--- OUTSIDE RECORDS SUMMARY | 2024-11-17 09:26 | XMS_ITS | Encounter Summary ---
Author Organization [facility] Address [address] [place] [address] [place] [address] Phone Care Team Providers Care Senior Clinical Study Manager Name Role Phone Jimmie Dunaway MD Primary Care Provider Duyen Moreland MD Primary Care Provider [phone] Osmin Rosado MD Unavailable [phone] Osmin Rosado MD Unavailable [phone] Reason for Visit * Reason Comments Medication Refill Encounter Details Date Type Department Care Team (Late st Contact Info) Description 04/28/2020 Refill [facility] #1 [place] [address] Osmin Rosado MD #2 [place] [address] Medication Refill Social History Tobacco Use Types [...] COVID-19? No / Unsure 03/30/2020 7:36 AM POLISHER APPRENTICE documented as of this encounter Plan of Treatment Upcoming Encounters Date Type Department Care Team (Late st Contact Info) Description 03/18/2025 10:00 AM POLISHER APPRENTICE Office Visit [facility] - Neurology [facility] #2 [place] [address] Osmin Rosado MD #[address] [place] [address] documented as of this encounter Visit Diagnoses Diagnosis REM sleep behavior disorder documented in this encounter Additional Health Concerns Infection Onset Date Last Indicated Resolved Time COVID - 19 Confirmed 04/20/2021 04/20/2021 022 12:16 AM POLISHER APPRENTICE Assessment Noted Time PHQ-9 Depression Total Score: 0 03/23/20 19 8:11 AM POLISHER APPRENTICE documented as of this encounter Care Teams Senior Clinical Study Manager Relationship Specialty Start Date End Date Jimmie Dunaway MD #[address] [address] PCP - General Family Medicine 01/17/15 03/28/22 Duyen Moreland MD [address] [facility] [place] [address] [place] [address] PCP - General Family Medicine 03/29/22 Osmin Rosado MD #2 [place] [address] Consulting Physician Neurology 03/29/22 Osmin Rosado MD #2 [place] [address] Consulting Physician Neurology 09/15/24 documented as of this encounter
--- OUTSIDE RECORDS SUMMARY | 2024-11-17 09:26 | XMS_ITS | Clinical Summary ---
Author Organization [facility] Address [address], [address] [address] Phone Care Team Providers Care Human Resources Assistant Name Role Phone Duyen Moreland MD Primary Care Provider [phone] Omsin Rosado MD Unavailable [phone] Osmin Rosado MD Unavailable [phone] Allergies No known active allergies Medications naproxen (NAPROSYN) 500 MG Tablet Take 1 Tablet by mouth 2 times daily (with meals). 180 Tablet 3 2 Active Additional Information Patient not taking.Reported on 09/11/2024 amLODIPine (NORVASC) 10 MG Tablet TAKE 1 TABLET BY MOUTH DAILY 90 Tablet 3 2 Active citalopram (CeleXA) 20 MG Tablet TAKE 1 TABLET BY MOUTH DAILY 90 Tablet 3 2 Active traMADol (ULTRAM) 50 MG TabletIndication s:Primary osteoarthritis, unspecified site TAKE 1 TABLET BY MOUTH TWICE DAILY 60 Tablet 2 Active Additional Information Patient not taking.Reported on 09/11/2024 apixaban (Eliquis) 2.5 MG Tablet Take 2.5 mg by mouth 2 times daily. Active lisinopril (PRINIVIL, ZESTRIL) 10 MG Tablet [...] Take 0.5 mg by mouth daily. Active donepezil (ARICEPT) 10 MG Tablet Take 1 Tablet by mouth nightly. 90 Tablet 3 5 Active Acetaminophen (TYLENOL ARTHRITIS PAIN PO) Take by mouth. Activ e carbidopa-levodo pa (SINEMET) 25-100 MG Tablet Take 2 Tablets by mouth 4 times daily. 180 Tablet 5 5 Active clonazePAM (KlonoPIN) 0.5 MG TabletIndication s:REM sleep behavior disorder Take 1 Tablet by mouth nightly. 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, psychotic disturbance, mood disturbance, or anxiety 09/13/2024 Atrial fibrillation, unspecified type 07/11/2023 Parkinsonism, unspecified Parkinsonism type 06/27 Primary insomnia 03/11/2018 History of basal cell carcinoma (BCC) of skin Mass of right hand 09/19/2016 Benign non-nodular prostatic hyperplasia with lower urinary tract symptoms 08/25/2015 RLS (restless legs syndrome) DJD (degenerative joint disease) ÁNGELA (obstructive sleep apnea) Carpal tunnel syndrome Overview (02/16/2015): B/L HTN (hypertension) Encounters Date Type Department Care Team Description 09/22/2024 Refill [facility] - [place] #2 [place] [address] Osmin Rosado MD 09/11/2024 1:00 PM CDT Office Visit [facility] Neu[facility] #2 [place] [address] Osmin Rosado MD Parkinsonism, unspecified Parkinsonism type (HCC) (Primary Dx); REM sleep behavior disorder; Hallucination; 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, psychotic disturbance, mood disturbance, or anxiety (HCC); Atrial fibrillation, unspecified type (HCC) Discharge Disposition: Discharged to home or Selfcare 09/11/2024 Travel 09/10/2024 Travel from Last 3 Months Immunizations Immunization Administration Dates Next Due Influenza Vaccine 03/15/2021,02/20/2019 Influenza Vaccine greater than 3 yrs 02/27/2013 Influenza Vaccine, Quadrivalent, PF 01/08/2018 Influenza, High-dose, Quadrivalent 05/09/2023 Influenza, Quadrivalent, Adjuvanted 03/24/2022,1 ,01/30/2020 Influenza, Seasonal, Injecta ble, Undefined 02/27/2013 Influenza, high-dose, trivalent, PF 03/29,02/15/2019,03/05/2017,2015,01/31/2016 PUR FLU HIGH DOSE (FLUZONE) 03/27/2016 Pneumococcal [...] Sign Reading Time Taken Comments Blood Pressure 102/72 09/11/2024 1:16 PM CDT Pulse 68 09/11/2024 1:16 PM CDT Temperature 37 C (98.6 F) 09/11/2024 1:16 PM CDT Respiratory Rate 16 09/11/2024 1:16 PM CDT Oxygen Saturation 96% 09/11/2024 1:16 PM CDT Inhaled Oxygen Concentration - - Weight 74.1 kg (163 lb 4.8 oz) 09/11/2024 1:16 P M CDT Height 175.3 cm (5' 9) 09/11/2024 1:16 PM CDT Body Mass Index 24.12 09/11/2024 1:16 PM CDT Plan of Treatment Upcoming Encounters Date Type Department Care Team (Late st Contact Info) Description 03/18/2025 10:00 AM DIRECTOR SALES AND TRADE MARKETING Office Visit [facility] - Neu[facility] #2 [place] [address] Osmin Rosado MD #2 [place] [address] Health Maintenance Due Date Last Done Comments Hepatitis C Virus (HCV) Screening 1940 TdaP Immunization 1940 Zoster Immunization (2 of 3) 06/24/2006 04/29/2006 Respiratory Syncytial Virus (RSV) Immunization (Adult) (1 - 1-dose 75+ series) 2017 SARS-COV-2 Immunization ( - season) 2023 07/02/2020 Influenza Immunization (#1) 12/28/202403/29, 05/09/2023, 03/24/2022, Additional history exists Pneumococcal Immunization (50+ years) Completed 02/05/2015, 01/28/2012 Pneumococcal Immunization Combined Discontinued 02/05/2015, 01/28/2012 Hepatitis B Immunization Aged Out No longer eligible based on patient's age to complete this topic Human Papillomavirus (HPV) Immunization Aged Out No longer eligible based on patient's age to complete this topic Meningococcal Immunization (ACWY) Aged Out No longer eligible based on patient's age to complete this topic Rotavirus Immunization Aged Out No lo nger eligible based on patient's age to complete this topic Insurance MEDICARE [facility] Care Teams Human Resources Assistant Relationship Specialty Start Date End Date Duyen Moreland MD [address] [facility] [address] [place] [address] PCP - General Family Medicine 03/29/22 Osmin Rosado MD #2 [place] [address] Consulting Physician Neurology 03/29/22 Osmin Rosado MD #2 [place] [address] Consulting Physician Neurology 09/15/24
--- OUTSIDE RECORDS SUMMARY | 2024-11-17 09:26 | XMS_ITS | Encounter Summary ---
Author Organization [facility] Address [address] [place] [address] Phone Care Team Providers Care Farm Management Agent Name Role Phone Duyen Moreland MD Primary Care Provider [phone] Osmin Rosado MD Unavailable [phone] Osmin Rosado MD Unavailable [phone] Reason for Visit * Reason Comments Medication Refill Encounter Details Date Type Department Care Team (Late st Contact Info) Description 03/19/2023 Refill [facility] - Family Medicine [facility] #2 [place] [address] Jimmie Dunaway MD #[address] [address] Medication Refill Social History Tobacco Use Types [...] Coronavirus/COVID-19? No / Unsure 03/07/2023 1:39 PM ODD BUNDLE WORKER documented as of this encounter Plan of Treatment Upcoming Encounters Date Type Department Care Team (Late st Contact Info) Description 03/18/2025 10:00 AM ODD BUNDLE WORKER Office Visit [facility] Neurology [facility] #2 [place] [address] Osmin Rosado MD #2 [place] [address] documented as of this encounter Visit Diagnoses Diagnosis Primary osteoarthritis, unspecified site documented in this encounter Additional Health Concerns Assessment Noted Time PHQ-9 Depression Total Score: 0 10/05/19 8:28 AM CDT documented as of this encounter Care Teams Farm Management Agent Relationship Specialty Start Date End Date Duyen Moreland MD [address] [facility] [address] [place], [place] [address] PCP - General Family Medicine 03/29/22 Osmin Rosado MD #2 [place] [address] Consulting Physician Neurology 03/29/22 Osmin Rosado MD #2 [place] [address] Consulting Physician Neurology 09/15/24 documented as of this encounter
--- OUTSIDE RECORDS SUMMARY | 2024-11-17 09:26 | XMS_ITS | Encounter Summary ---
Author Organization [facility] Address [address] [place] [address] Phone Care Team Providers Care Termite Renewal Inspector Name Role Phone Jimmie Dunaway MD Primary Care Provider [phone] Duyen Moreland MD Primary Care Provider + [phone] Osmin Rosado MD Unavailable [phone] Osmin Rosado MD Unavailable [phone] Reason for Visit * Reason Comments Medication Refill Encounter Details Date Type Department Care Team (Late st Contact Info) Description 11/11/2020 Refill [facility] [address] [place], [place] [address] Jimmie Dunaway MD #[address] [address] Medication Refill Social History Tobacco Use Types [...] prostatic hyperplasia with lower urinary tract symptoms [facility] Jimmie Wu MD 7 months ago Essential hypertension [facility] Jimmie Wu MD 1 year ago Essential hypertension [facility] Jimmie Wu MD 1 year ago Essential hypertension [facility] Jimmie Wu MD 2 years ago Primary insomnia [facility] Jimmie Wu MD Upcoming Appointments Future Appointments In 3 days Osmin Rosado MD [facility] Neurology ALIZE Chen In 4 months Karen, [facility], [facility] In 4 months Jimmie Dunaway MD [facility] ALIZE Chen CHIEF INSPECTOR - Recent and Past Visits Recent Visits Date Type Provider Dept 10/04/20 Office Visit Jimmie Dunaway MD [facility] Gustavo 04/04/20 Telemedicine Jimmie Dunaway MD [facility] 09/22/19 Office Visit Jimmie Dunaway MD [facility] Showing recent visits within past 460 days [...] st Contact Info) Description 03/18/2025 10:[address] ENGINEER Office Visit [facility] - Neurology - [place] #2 [place] [address] Osmin Rosado MD #2 [place] [address] documented as of this encounter Visit Diagnoses Not on filedocumented in this encounter Additional Health Concerns Infection Onset Date Last Indicated Resolved Time COVID - 19 Confirmed 04/20/2021 04/20/2021 022 12:[address] ENGINEER Assessment Noted Time PHQ-9 Depression Total Score: 0 10/05/19 21 7:37 AM CDT documented as of this encounter Care Teams Termite Renewal Inspector Relationship Specialty Start Date End Date Jimmie Dunaway MD #[address] [address] PCP - General Family Medicine 01/17/15 03/28/22 Duyen Moerland MD [address] [facility] [address] [place] [address] PCP - General Family Medicine 03/29/22 Osmin Rosado MD #2 [place] [address] Consulting Physician Neurology 03/29/22 Osmin Rosado MD #2 [place] [address] Consulting Physician Neurology 09/15/24 documented as of this encounter
--- OUTSIDE RECORDS SUMMARY | 2024-11-17 09:26 | XMS_ITS | Encounter Summary ---
Author Organization [facility] Address [address] [place] [address] Phone Care Team Providers Care Medical Librarian Name Role Phone Jimmie Dunaway MD Primary Care Provider Duyen Moreland MD Primary Care Provider [phone] Osmin Rosado MD Unavailable [phone] Osmin Rosado MD Unavailable [phone] Reason for Visit * Reason Comments Medication Refill Encounter Details Date Type Department Care Team (Late st Contact Info) Description 10/12/2021 Refill [facility] [address] [place] [id number] Jimmie Dunaway MD [address] [address] Medication Refill Social History Tobacco Use Types Packs/Day Years Used Date Smoking Tobacco: Former Smokeless Tobacco: Never Alcohol Use Standard Drinks/Week Comments No 0 (1 standard drink = 0.6 oz pur e alcohol) PHQ-2 Answer Date Recorded Total Score - Questions 1-9 0 06/0 11/2021 Sexually Active Control Partners Comments Not [...] Telephone Encounter - Luzma Cisneros RN - 10/13/2021 8:08 AM CDT Medication [...] Dept 10/04/21 [facility] 04/05/21 Office Visit Jimmie Dunaway MD [facility] Showing recent visits within past 365 [...] Dept 10/04/21 Office Visit Jimmie Dunaway MD [facility] Showing recent visits within past 182 [...] st Contact Info) Description 03/18/2025 10:00 AM SALES FLOOR TEAM LEADER [facility] [place] [address] [place] [address] Osmin Rosado MD [address] [place] [address] documented as of this encounter Visit Diagnoses Not on filedocumented in this encounter Additional Health Concerns Assessment Noted Time PHQ-9 Depression Total Score: 0 10/05/19 8:28 AM CDT documented as of this encounter Care Teams Medical Librarian Relationship Specialty Start Date End Date Jimmie Dunaway MD [address] [facility] [address] [place] [address] PCP - General Family Medicine 01/17/15 03/28/22 Duyen Moreland MD [address] [facility] [address] [place] [address] PCP - General Family Medicine 03/29/22 Osmin Rosado MD [address] [place] [address] Consulting Physician Neurology 03/29/22 Osmin Rosado MD [address] [place] [address] Consulting Physician Neurology 09/15/24 documented as of this encounter
--- OUTSIDE RECORDS SUMMARY | 2024-11-17 09:26 | XMS_ITS | Encounter Summary ---
Author Organization [facility] Address [address] [place] [address] Phone Care Team Providers Care English As A Second Language Instructor Name Role Phone Jimmie Dunaway MD Primary Care Provider [phone] Duyen Moreland MD Primary Care Provider + [phone] Osmin Rosado MD Unavailable [phone] Osmin Rosado MD Unavailable [phone] Reason for Visit * Reason Comments Medication Refill Encounter Details Date Type Department Care Team (Late Contact Info) Description 04/02/2021 Refill [facility] [address] [place], [place] [address] Jimmie Dunaway MD [address] [address] Medication Refill Social History Tobacco Use Types Packs/Day Years Used Date Smoking Tobacco: Former Smokeless Tobacco: Never Alcohol Use Standard Drinks/Week Comments No 0 (1 standard drink = 0.6 oz pur e alcohol) PHQ-2 Answer Date Recorded Total Score - Questions 1-9 0 12/0 11/2020 Sexually Active Control Partners Comments Not [...] COVID-19? No / Unsure 04/05/2021 7:48 AM SHIPPING MANAGER documented as of this encounter Miscellaneous Notes * Telephone Encounter - Luzma Cisneros RN - 04/03/2021 12:11 PM CST Name from pharmacy: TAMSULOSIN 0.4MG CAPSULES Will file in chart as: tamsulosin (FLOMAX) 0.4 MG Capsule The original prescription was discontinued on 02/03/2020 by Osmin Rosado MD Patient reported not taking - no recent activity on MEDD PING MANAGER documented in this encounter Plan of Treatment Upcoming Encounters Date Type Department Care Team (Late st Contact Info) Description 03/18/2025 10:00 AM SHIPPING MANAGER [facility] [address] [place] [address] Osmin Rosado MD [address] [place] [address] documented as of this encounter Visit Diagnoses Not on filedocumented in this encounter Additional Health Concerns Infection Onset Date Last Indicated Resolved Time COVID - 19 Confirmed 04/20/2021 04/20/2021 022 12:16 AM SHIPPING MANAGER Assessment Noted Time PHQ-9 Depression Total Score: 0 10/05/19 21 7:37 AM CDT documented as of this encounter Care Teams English As A Second Language Instructor Relationship Specialty Start Date End Date Jimmie Dunaway MD [address]2 [facility] [address] [place] [address] PCP - General Family Medicine 01/17/15 03/28/22 Duyen Moreland MD [address] [facility] [address] [place] [address] PCP - General Family Medicine 03/29/22 Osmin Rosado MD [address] [place] [address] Consulting Physician Neurology 03/29/22 Osmin Rosado MD [address] [place] [address] Consulting Physician Neurology 09/15/24 documented as of this encounter
[2024-11-17 10:06] LABS: Albumin Level 4.3 g/dL (3.5-5.1); Anion Gap 8 mmol/L (4-12); Blood Urea Nitrogen 26 mg/dL (9-20); Calcium 9.0 mg/dL (8.4-10.2); Carbon Dioxide 27 mmol/L (22-30); Chloride 100 mmol/L (98-107); Estimated Glomerular Filt Rate 55; Glucose 121 mg/dL (65-110); Potassium 4.3 mmol/L (3.4-5.0); Sodium 135 mmol/L (137-145)
== END 2024-11-17 09:24 | disposition home or self-care (01) ==
PROVIDERS: PCP Family Medicine; Visit Provider Internal Medicine Nephrology
DX: E87.1 Hypo-osmolality and hyponatremia (principal)
CPT/HCPCS: 36415; 80069